=== PATIENT | male | born 1935 | race Caucasian/White ===

== ENCOUNTER 2016-03-19 13:26 | Inpatient (IN) | payer MEDICARE ==
[2016-03-19] MEDS ORDERED: MORPHINE SULFATE 4 MG/ML SYRINGE IV STA (13:57)
[2016-03-19] MEDS ORDERED: SODIUM CHLORIDE 0.9% 1,000 ML IV STA (13:57)
[2016-03-19] MEDS ORDERED: ASPIRIN 81 MG CHEW PO STA (13:57)
[2016-03-19] MEDS ORDERED: ONDANSETRON 4 MG/2 ML VIAL IVP STA (13:57)
[2016-03-19] MEDS ORDERED: NITROGLYCERIN OINT 1 INCH/GM PACKET TOPICAL STA (13:57)
[2016-03-19 14:21] LABS: Basophils % (A) 0 %; CH 32.5; CHCM 32.9; Eosinophils # (A) 0.2 k/uL (0-0.7); Eosinophils % (A) 4 %; HCT 41.2 % (39.0-53.0); HDW 3.22; HGB 13.5 gm/dL (13.0-17.5); Luc # (Auto) 0.12; Luc % (Auto) 2; Lymphocytes # (A) 0.6 k/uL (1.0-4.8); Lymphocytes % (A) 11 %; MCH 32.5 pg (25.0-35.0); MCHC 32.7 g/dL (31.0-37.0); MCV 99.4 fL (80.0-100.0); Macrocytosis Slight; Mean Platelet Volume 7.6; Monocytes # (A) 0.3 k/uL (0-1.0); Monocytes % (A) 5 %; Neutrophils # (A) 4.4 k/uL (1.3-7.7); Neutrophils % (A) 78 %; RBC 4.14 m/uL (4.30-5.90); RDW 15.2 % (11.5-15.5); WBC 5.6 k/uL (3.8-10.6); WBC (Perox) 5.62
[2016-03-19 14:26] LABS: ALT 31 U/L (21-72); AST 24 U/L (17-59); Alkaline Phosphatase 115 U/L (38-126); Anion Gap 16 mmol/L; Blood Urea Nitrogen 21 mg/dL (9-20); Calcium 9.9 mg/dL (8.4-10.2); Carbon Dioxide 32 mmol/L (22-30); Chloride 101 mmol/L (98-107); Glucose 80 mg/dL (74-99); Magnesium 2.1 mg/dL (1.6-2.3); Non-African American GFR(MDRD) >60 (>60 ml/min/1.73 sqM); Potassium 3.5 mmol/L (3.5-5.1); Sodium 149 mmol/L (137-145); Total Bilirubin 0.9 mg/dL (0.2-1.3); Total Protein 7.6 g/dL (6.3-8.2)
[2016-03-19 14:27] LABS: Partial Thromboplastin Time 23.4 sec (22.0-30.0); Prothrombin Time 10.2 sec (9.0-12.0)
[2016-03-19 14:48] LABS: Creatine Kinase MB 2.3 ng/mL (0.0-2.4)
[2016-03-19 14:51] LABS: Troponin I 0.259 ng/mL (0.000-0.034)
--- NOTE | 2016-03-19 15:43 | ED ---
Chest Pain HPI - General Chief Complaint: Chest Pain Stated Complaint: Chest Pain Time Seen by Provider: 03/19/16 13:51 Source: patient Mode of arrival: wheelchair Limitations: no limitations - History of Present Illness Initial Comments: Presented with chest pain on the right side of the chest and left side of the chest and the central chest it started about 11 AM today he was not quite exerting himself he came on when he was resting, it's better now he denies any shortness of breath he denies any pleuritic component to his chest pain. No fever no chills he is not coughing up any phlegm he took a nitro he didn't quite help he was on a Coumadin and then he was bleeding in his joints that's why he has not been on blood thinners, he denies any headaches or neck stiffness no sinus symptoms of TIA or CVA he has a history of coronary artery disease status post CABG back in 1997 he status post previous pacemaker in place and a defibrillator - Related Data Home Medications Medication Instructions Recorded Confirmed Allopurinol [Zyloprim] 300 mg PO QAM 11/23/13 03/19/16 Aspirin 81 mg PO DAILY 11/23/13 03/19/16 Atorvastatin [Lipitor] 40 mg PO HS 11/23/13 03/19/16 Carvedilol [Coreg] 3.125 mg PO BID 11/23/13 03/19/16 Dicyclomine [Bentyl] 10 mg PO TID PRN 11/23/13 03/19/16 Diphenoxylate HCl/Atropine 1 tab PO QID PRN 11/23/13 03/19/16 [Lomotil] Losartan [Cozaar] 25 mg PO DAILY 11/23/13 03/19/16 PARoxetine [Paxil] 20 mg PO HS 11/23/13 03/19/16 Terazosin [Hytrin] 2 mg PO HS 11/23/13 03/19/16 Diazepam [Valium] 5 mg PO BID PRN 07/23/14 03/19/16 Acetaminophen [Tylenol] 325 mg PO Q4H PRN 09/03/15 03/19/16 Torsemide [Torsemide] 20 mg PO BID 03/19/16 03/19/16 Allergies Allergy/AdvReac Type Severity Reaction Status Date / Time Penicillins Allergy Unknown Verified 09/03/15 13:14 Childhood Review of Systems ROS Statement: Those systems with pertinent positive or pertinent negative responses have been documented in the HPI. ROS Other: All systems not noted in ROS Statement are negative. EKG Findings - EKG Comments: EKG Findings:: EKG is ventricular paced rhythm biventricular pacemaker is in place, ventricular rate is 58 QRS duration is 154 QT/QTc is 488/479 Past Medical History Past Medical History: Atrial Fibrillation, Coronary Artery Disease (CAD), Heart Failure, GERD/Reflux, Hyperlipidemia, Hypertension, Musculoskeletal Disorder, Osteoarthritis (OA) Additional Past Medical History / Comment(s): CAD status post CABG with ischemic cardiomyopathy,gout, IBS History of Any Multi-Drug Resistant Organisms: MRSA Date of last positivie culture/infection: 2010 MDRO Source:: knee infection Past Surgical History: Coronary Bypass/CABG, Pacemaker Additional Past Surgical History / Comment(s): defibrillator/pacemaker. AAA surg , cataract surg Past Anesthesia/Blood Transfusion Reactions: No Reported Reaction Type of Cardiac Device: Permanent Pacemaker Device Placement Date:: 2012 Past Psychological History: No Psychological Hx Reported Smoking Status: Former smoker Past Alcohol Use History: Rare Past Drug Use History: None Reported - Past Family History Father Family Medical History: Cancer Additional Family Medical History / Comment(s): Brain and larynx Mother Family Medical History: Cancer Additional Family Medical History / Comment(s): Lung Brother(s) Family Medical History: No Reported History General Exam - General Exam Comments Initial Comments: General: The patient is awake and alert, in no distress, and does not appear acutely ill. Skin: Skin is warm and dry and no rashes or lesions are noted. Eye: Pupils are equal, round and reactive to light, extra-ocular movements are intact; there is normal conjunctiva bilaterally. Ears, nose, mouth and throat: There are moist mucous membranes and no oral lesions. Neck: The neck is supple, there is no tenderness Cardiovascular: There is a regular rate and rhythm. No murmur, rub or gallop is appreciated. Respiratory: To auscultation bilateral, mildly decreased breath sounds bilaterally Gastrointestinal: Soft, non-distended, non-tender abdomen without masses or organomegaly noted. There is no rebound or guarding present. Bowel sounds are unremarkable. Back: There is no tenderness to palpation in the midline. There is no obvious deformity. Musculoskeletal: Normal ROM, no tenderness, There is no pedal edema. There is no calf tenderness or swelling. No cords were appreciated. Neurological: CN II-XII intact, Cranial nerves III through XII are intact. There are no obvious motor or sensory deficits. Coordination appears grossly intact. Speech is normal. Psychiatric: Cooperative, appropriate mood & affect, normal judgment. Limitations: no limitations Course Vital Signs 03/19/16 13:31 Temperature 97.2 F L Pulse Rate 61 Respiratory 18 Rate Blood Pressure 204/93 O2 Sat by Pulse 100 Oximetry Critical Care Time Total Critical Care Time: 35 Critical Care Time: Similar chest pain since 11 AM, according to the are coronary artery ischemic disease protocol he was treated the ER I am going to give him a Lovenox 1 mg/kg subcu or heparinize him a regular heparin but there is a concern that he has a history of bleeding and joints that's when his Coumadin was started and stopped at 1.90 admitted with the morphine nitro blood thinner beyond post exchange manager as quotation under long-term cardiology consult and the service of Dr. Lucas Disposition Clinical Impression: Myocardial infarction Disposition: ADMITTED IP TO THIS HOSP Condition: Good
[2016-03-19] MEDS ORDERED: NITROGLYCERIN SL TABS 0.4 MG TAB SUBLINGUAL PRN (15:46)
[2016-03-19] MEDS ORDERED: ACETAMINOPHEN TAB 325 MG TAB PO PRN (15:52)
[2016-03-19] MEDS ORDERED: DICYCLOMINE 10 MG CAP PO PRN (15:52)
[2016-03-19] MEDS ORDERED: DIAZEPAM 5 MG TAB PO PRN (15:52)
[2016-03-19] MEDS ORDERED: DIPHENOX-ATROP 2.5-0.025 MG 1 EACH TAB PO PRN (15:52)
[2016-03-19] MEDS: CARVEDILOL 3.125 MG TAB PO SCH (18:07)
[2016-03-19 20:08] LABS: Creatine Kinase MB 3.3 ng/mL (0.0-2.4)
[2016-03-19 20:10] LABS: Troponin I 0.525 ng/mL (0.000-0.034)
[2016-03-19] MEDS: PARoxetine 20 MG TAB PO SCH (20:52)
[2016-03-19] MEDS: TERAZOSIN 2 MG CAP PO SCH (20:52)
[2016-03-19] MEDS: TORSEMIDE 20 MG TAB PO SCH (20:52)
[2016-03-19] MEDS ORDERED: ATORVASTATIN 40 MG TAB PO SCH ×2 (21:00)
[2016-03-20 02:19] LABS: Cholesterol 109 mg/dL (<200); HDL Cholesterol 32 mg/dL (40-60); Triglycerides 124 mg/dL (<150)
[2016-03-20 02:49] LABS: Creatine Kinase MB 4.9 ng/mL (0.0-2.4); Troponin I 1.18 ng/mL (0.000-0.034)
[2016-03-20] MEDS: CARVEDILOL 3.125 MG TAB PO SCH (07:01)
[2016-03-20] MEDS ORDERED: ASPIRIN 325 MG TAB PO STA (08:43)
[2016-03-20] MEDS ORDERED: ATORVASTATIN 80 MG TAB PO STA (08:43)
[2016-03-20] MEDS ORDERED: ALPRAZolam 0.5 MG TAB PO PRN (08:43)
[2016-03-20] MEDS ORDERED: NITROGLYCERIN SL TABS 0.4 MG TAB SUBLINGUAL PRN ×2 (08:43→15:53)
[2016-03-20] MEDS ORDERED: SODIUM CHLORIDE 0.9% 1,000 ML in EMPTY BAG 1 BAG IV ONE (08:43)
[2016-03-20] MEDS ORDERED: HEPARIN SODIUM,PORCINE 5,000 UNIT/ML 1 ML VIAL IV ONE (08:45)
[2016-03-20] MEDS ORDERED: HEPARIN SODIUM,PORCINE/D5W PMX 25,000 UNIT in DEXTROSE/WATER 1 500ML.BAG IV SCH (08:45)
[2016-03-20] MEDS ORDERED: HEPARIN SODIUM,PORCINE 5,000 UNIT/ML 1 ML VIAL IV PRN (08:45)
--- NOTE | 2016-03-20 08:45 | P.CRDCN ---
History of Present Illness Consult date: 03/20/16 Requesting physician: Shelia Lucas Consult reason: chest pain Chief complaint: Chest pain History of present illness: This is a pleasant 80-year-old gentleman with known history of coronary artery disease and prior bypass surgery 18 years ago, hypertension, hyperlipidemia, chronic persistent atrial fibrillation, prior biV AICD , prior AAA repair, prior carotid endarterectomy who follows regularly with Dr. Sheri Deng in the office. He presents to the hospital with symptoms of discomfort in his chest. He states that yesterday the symptoms started in the right shoulder area, radiated across the chest over to the left side, he denies any associated shortness of breath, no nausea, no diaphoresis. He took a sublingual nitroglycerin without relief of symptoms and came to the emergency room for further evaluation. Initial EKG on presentation here showed a ventricular paced rhythm with underlying atrial fibrillation, repeat EKG this morning shows ventricular paced rhythm with underlying atrial fibrillation.According to the patient, he had been on Coumadin a couple of times in the past, but because of bleeding was discontinued. Laboratory data was reviewed this morning, hemoglobin 13.5, WBC 5.6, potassium 3.5, BUN 21, creatinine 1.1. Troponins 0.25, 0.52, 1.18. BNP level 1490. Past Medical History Past Medical History: Atrial Fibrillation, Coronary Artery Disease (CAD), Heart Failure, GERD/Reflux, Hyperlipidemia, Hypertension, Musculoskeletal Disorder, Osteoarthritis (OA) Additional Past Medical History / Comment(s): CAD status post CABG with ischemic cardiomyopathy,gout, IBS History of Any Multi-Drug Resistant Organisms: MRSA Date of last positivie culture/infection: 2010 MDRO Source:: knee infection Past Surgical History: Coronary Bypass/CABG, Pacemaker Additional Past Surgical History / Comment(s): defibrillator/pacemaker. AAA surg , cataract surg Past Anesthesia/Blood Transfusion Reactions: No Reported Reaction Type of Cardiac Device: Permanent Pacemaker Device Placement Date:: 2012 Past Psychological History: No Psychological Hx Reported Smoking Status: Former smoker Past Alcohol Use History: Rare Past Drug Use History: None Reported - Past Family History Father Family Medical History: Cancer Additional Family Medical History / Comment(s): Brain and larynx Mother Family Medical History: Cancer Additional Family Medical History / Comment(s): Lung Brother(s) Family Medical History: No Reported History Medications and Allergies Home Medications Medication Instructions Recorded Confirmed Type Allopurinol [Zyloprim] 300 mg PO QAM 11/23/13 03/19/16 History Aspirin 81 mg PO DAILY 11/23/13 03/19/16 History Atorvastatin [Lipitor] 40 mg PO HS 11/23/13 03/19/16 History Carvedilol [Coreg] 3.125 mg PO BID 11/23/13 03/19/16 History Dicyclomine [Bentyl] 10 mg PO TID PRN 11/23/13 03/19/16 History Diphenoxylate HCl/Atropine 1 tab PO QID PRN 11/23/13 03/19/16 History [Lomotil] Losartan [Cozaar] 25 mg PO DAILY 11/23/13 03/19/16 History PARoxetine [Paxil] 20 mg PO HS 11/23/13 03/19/16 History Terazosin [Hytrin] 2 mg PO HS 11/23/13 03/19/16 History Diazepam [Valium] 5 mg PO BID PRN 07/23/14 03/19/16 History Acetaminophen [Tylenol] 325 mg PO Q4H PRN 09/03/15 03/19/16 History Torsemide [Torsemide] 20 mg PO BID 03/19/16 03/19/16 History Allergies Allergy/AdvReac Type Severity Reaction Status Date / Time Penicillins Allergy Unknown Verified 09/03/15 13:14 Childhood Physical Exam Vitals: Vital Signs Temp Pulse Pulse Resp BP BP Pulse Ox 03/20/16 04:00 97.1 F L 53 L 18 133/63 94 L 03/20/16 00:00 97.4 F L 58 L 18 138/62 98 03/19/16 20:00 96.6 F L 61 18 123/60 97 03/19/16 18:56 97 F L 62 17 141/65 96 03/19/16 17:44 98.0 F 74 18 179/77 98 Intake and Output 03/19/16 03/20/16 03/20/16 22:59 06:59 14:59 Output Total 300 400 Balance -300 -400 Output: Urine 300 400 Other: # Voids 1 Weight 77 kg PHYSICAL EXAMINATION: HEENT: Head is atraumatic, normocephalic. Pupils equal, round. Neck is supple. There is no elevated jugular venous pressure. HEART EXAMINATION: Heart S1 S2 irregular irregular systolic ejection murmur is heard. CHEST EXAMINATION: Lungs are clear to auscultation and precussion. No chest wall tenderness is noted on palpation or with deep breathing. ABDOMEN: Soft, nontender. Bowel sounds are heard. No organomegaly noted. EXTREMITIES: 2+ peripheral pulses with no evidence of peripheral edema and no calf tenderness noted. NEUROLOGIC patient is awake, alert and oriented -3. . Results 03/19/16 13:45 03/19/16 13:45 Cardiac Enzymes 03/19/16 03/20/16 Range/Units 19:14 01:45 CK-MB (CK-2) 3.3 H* 4.9 H* (0.0-2.4) ng/mL Troponin I 0.525 H* 1.180 H* (0.000-0.034) ng/mL Lipids 03/20/16 Range/Units 01:45 Triglycerides 124 (<150) mg/dL Cholesterol 109 (<200) mg/dL HDL Cholesterol 32 L (40-60) mg/dL Current Medications Generic Name Dose Route Start Last Admin Trade Name Freq PRN Reason Stop Dose Admin Acetaminophen 325 mg 03/19/16 15:52 Tylenol Tab PO Q4H PRN Mild Pain Allopurinol 300 mg 03/20/16 09:00 Zyloprim PO QAM [facility] Aspirin 81 mg 03/20/16 09:00 Aspirin PO DAILY [facility] Atorvastatin Calcium 40 mg 03/19/16 21:00 03/19/16 20:52 Lipitor PO 40 mg HS JAZ Administration Carvedilol 3.125 mg 03/19/16 17:30 03/20/16 07:01 Coreg PO 3.125 mg BID-W/MEALS JAZ Administration Diazepam 5 mg 03/19/16 15:52 Valium PO BID PRN Anxiety Dicyclomine HCl 10 mg 03/19/16 15:52 Bentyl PO TID PRN GI Upset Diphenoxylate HCl/Atropine 1 each 03/19/16 15:52 Lomotil PO QID PRN Diarrhea Sodium Chloride 1,000 mls @ 50 mls/hr 03/19/16 13:57 03/19/16 14:15 Saline 0.9% IV 03/20/16 09:56 50 mls/hr .Q20H STA Administration Losartan Potassium 25 mg 03/20/16 09:00 Cozaar PO DAILY JAZ Morphine Sulfate 2 mg 03/19/16 15:46 Morphine Sulfate (Inj) IVP Q5M PRN Chest Pain Nitroglycerin 0.4 mg 03/19/16 15:46 Nitrostat SUBLINGUAL Q5M PRN Chest Pain Paroxetine HCl 20 mg 03/19/16 21:00 03/19/16 20:52 Paxil PO 20 mg HS JAZ Administration Terazosin HCl 2 mg 03/19/16 21:00 03/19/16 20:52 Hytrin PO 2 mg HS JAZ Administration Torsemide 20 mg 03/19/16 21:00 03/19/16 20:52 Demadex PO 20 mg BID JAZ Administration Intake and Output 03/19/16 03/20/16 03/20/16 22:59 06:59 14:59 Output Total 300 400 Balance -300 -400 Output: Urine 300 400 Other: # Voids 1 Weight 77 kg EKG Interpretations (text) EKG shows a ventricular paced rhythm with underlying atrial fibrillation. Assessment and Plan Plan: Assessment and plan #1 chest discomfort, suggestive of acute coronary syndrome. EKG shows a ventricular paced rhythm with underlying atrial fibrillation. Troponins 0.25, 0.52, 1.1. #2 known history of coronary artery disease with prior bypass surgery 18 years ago #3 prior bi-V AICD implantation #4 chronic persistent atrial fibrillation, not on anticoagulation because of history of bleeding #5 hypertension #6 prior AAA with endograft #7 hyperlipidemia #8 PAD with prior carotid endarterectomy Plan Will obtain an echocardiogram with Doppler study. Continue baby aspirin, Lipitor, Coreg, losartan, we will start the patient on IV heparin. He has been advised to undergo cardiac catheterization, the risks and the benefits were explained to him in detail. This will be performed today by Dr. Sheri Deng. Further recommendations will be based on these findings and patient's clinical course. DNP note has been reviewed, I agree with a documented findings and plan of care. Patient was seen and examined.
[2016-03-20] MEDS ORDERED: ASPIRIN 81 MG CHEW PO SCH (09:00)
[2016-03-20] MEDS ORDERED: ASPIRIN 325 MG TAB PO SCH (09:00)
[2016-03-20] MEDS: ALLOPURINOL 300 MG TAB PO SCH (09:08)
[2016-03-20] MEDS: TORSEMIDE 20 MG TAB PO SCH ×2 (09:08→21:35)
[2016-03-20] MEDS: LOSARTAN 25 MG TAB PO SCH (09:09)
[2016-03-20 09:15] LABS: Basophils % (A) 1 %; CH 32.5; CHCM 32.1; Eosinophils # (A) 0.2 k/uL (0-0.7); Eosinophils % (A) 5 %; HGB 11.3 gm/dL (13.0-17.5); Hypochromasia Slight; Luc # (Auto) 0.06; Luc % (Auto) 1; Lymphocytes # (A) 0.8 k/uL (1.0-4.8); Lymphocytes % (A) 17 %; MCHC 31.3 g/dL (31.0-37.0); MCV 102.2 fL (80.0-100.0); Macrocytosis Slight; Mean Platelet Volume 9.1; Monocytes # (A) 0.3 k/uL (0-1.0); Monocytes % (A) 6 %; Neutrophils # (A) 3.2 k/uL (1.3-7.7); Neutrophils % (A) 70 %; RBC 3.53 m/uL (4.30-5.90); RDW 15.1 % (11.5-15.5); WBC 4.6 k/uL (3.8-10.6); WBC (Perox) 4.98
[2016-03-20 09:26] LABS: Partial Thromboplastin Time 23.9 sec (22.0-30.0); Prothrombin Time 10.6 sec (9.0-12.0)
--- NOTE | 2016-03-20 11:05 | ECHOF ---
Referral Reason:assess lvf MEASUREMENTS -------- HEIGHT: 177.8 cm WEIGHT: 76.7 kg BP: 133/63 RVIDd: 4.3 cm (< 3.3) IVSd: 1.3 cm (0.6 - 1.1) LVIDd: 3.5 cm (3.9 - 5.3) LVPWd: 1.2 cm (0.6 - 1.1) IVSs: 1.8 cm LVIDs: 2.7 cm LVPWs: 1.9 cm LA Diam: 3.9 cm (2.7 - 3.8) LAESV Index (A-L): 37.08 ml/m Ao Diam: 3.7 cm (2.0 - 3.7) AV Cusp: 1.8 cm (1.5 - 2.6) MV EXCURSION: 15.618 mm (> 18.000) MV EF SLOPE: 59 mm/s (70 - 150) EPSS: 1.0 cm MV E Jaret: 0.71 m/s MV DecT: 339 ms MV A Jaret: 0.75 m/s MV E/A Ratio: 0.95 RAP: 5.00 mmHg RVSP: 28.86 mmHg FINDINGS -------- Sinus rhythm. AICD This was a technically good study. The left ventricular size is normal. There is mild concentric left ventricular hypertrophy. Overall left ventricular systolic function is normal with, an EF between 55 - 60 %. The right ventricle is severely enlarged. LA is moderately dilated 34-39 ml/m2 The right atrium is normal in size. There is mild aortic valve sclerosis. Mild mitral annular calcification present. Mild tricuspid regurgitation present. Right ventricular systolic pressure is normal at < 35 mmHg. The pulmonic valve was not well visualized. The aortic root is dilated measuring 3.7cm. IVC Not well visulized. There is no pericardial effusion. CONCLUSIONS -------- 1. Sinus rhythm. 2. There is mild aortic valve sclerosis. 3. Mild mitral annular calcification present. 4. Mild tricuspid regurgitation present. 5. Right ventricular systolic pressure is normal at < 35 mmHg. 6. The pulmonic valve was not well visualized. 7. The aortic root is dilated measuring 3.7cm. 8. IVC Not well visulized. 9. There is no pericardial effusion. 10. AICD 11. This was a technically good study. 12. The left ventricular size is normal. 13. There is mild concentric left ventricular hypertrophy. 14. Overall left ventricular systolic function is normal with, an EF between 55 - 60 %. 15. The right ventricle is severely enlarged. 16. LA is moderately dilated 34-39 ml/m2 17. The right atrium is normal in size. EDUCATIONAL INTERPRETER: Lou Epperson RDCS
[2016-03-20] MEDS ORDERED: IV FLUID CONTINUATION 1,000 ML IV ONE (12:55)
[2016-03-20] MEDS ORDERED: diphenhydrAMINE 50 MG/ML 1 ML VIAL ONE (13:06)
[2016-03-20] MEDS ORDERED: MIDAZOLAM 2 MG/2 ML VIAL ONE (13:06)
[2016-03-20] MEDS ORDERED: LIDOCAINE 2% INJ 20 MG/ML (20 ML MDV) ONE ×2 (13:06→13:24)
[2016-03-20] MEDS ORDERED: diphenhydrAMINE 50 MG/ML 1 ML VIAL IVP ONE (13:08)
[2016-03-20] MEDS: MIDAZOLAM 2 MG/2 ML VIAL IV ONE ×2 (13:09→13:44)
[2016-03-20] MEDS: LIDOCAINE 2% INJ 20 MG/ML SQ ONE ×2 (13:13→13:29)
[2016-03-20] MEDS ORDERED: HYDROmorphone 2 MG/ML 1 ML SYRINGE ONE (13:18)
[2016-03-20] MEDS: HYDROmorphone 2 MG/ML 1 ML SYRINGE IV ONE ×3 (13:26→15:15)
[2016-03-20] MEDS: NITROGLYCERIN 1000MCG/10ML SYRINGE INTRACORON ONE ×3 (14:05→15:12)
[2016-03-20] MEDS ORDERED: METOPROLOL TARTRATE 5 MG/5 ML VIAL IVP ONE ×2 (14:05→14:08)
[2016-03-20] MEDS ORDERED: BIVALIRUDIN BOLUS 250 MG/50 ML IV ONE (14:32)
[2016-03-20] MEDS ORDERED: BIVALIRUDIN 250 MG in SODIUM CHLORIDE 0.9% 50 ML IV ONE (14:33)
[2016-03-20] MEDS ORDERED: NITROGLYCERIN SL TABS 0.4 MG TAB SUBLINGUAL ONE ×4 (14:34→15:10)
--- NOTE | 2016-03-20 14:54 | P.HPIM ---
History of Present Illness H&P Date: 03/20/16 Chief Complaint: Chest pain This is a 79-year-old male patient of with a previous medical history significant for coronary artery disease status post coronary artery bypass graft for 5 vessel is back in 1997 with ischemic cardiomyopathy status post AICD/permanent pacemaker placement, hypertension and hypertensive cardiovascular disease, hyperlipidemia, atrial fibrillation. Patient states he developed chest pain yesterday that went across his upper chest and to the bilateral shoulders. It did not radiate into his arms. He denies any nausea, vomiting, lightheadedness, dizziness, syncope. He describes it as a dull ache. He denies any abdominal pain. He denies any weight loss. Patient presented to [facility] emergency center with the above complaints. His initial blood pressure was elevated at 204/93. EKG showed a ventricular paced rhythm with underlying atrial fibrillation. His troponins were 0.25, 0.52 and 1.18. BNP 1490. BUN 21 and creatinine 1.1. Patient was admitted to the selective care unit and cardiology consult requested. Patient was started on heparin drip and continued on baby aspirin, Lipitor, Coreg, losartan. Echocardiogram has been ordered and patient has been scheduled for heart catheterization. Review of Systems All systems: negative Constitutional: Denies chills, Denies fever Eyes: denies blurred vision, denies pain Ears, nose, mouth and throat: Denies headache, Denies sore throat Cardiovascular: Reports chest pain, Denies shortness of breath Respiratory: Denies cough Gastrointestinal: Denies abdominal pain, Denies diarrhea, Denies nausea, Denies vomiting Musculoskeletal: Denies myalgias Integumentary: Denies pruritus, Denies rash Neurological: Denies numbness, Denies weakness Psychiatric: Denies anxiety, Denies depression Endocrine: Denies fatigue, Denies weight change Past Medical History Past Medical History: Atrial Fibrillation, Coronary Artery Disease (CAD), Heart Failure, GERD/Reflux, Hyperlipidemia, Hypertension, Musculoskeletal Disorder, Osteoarthritis (OA) Additional Past Medical History / Comment(s): CAD status post CABG with ischemic cardiomyopathy,gout, IBS History of Any Multi-Drug Resistant Organisms: MRSA Date of last positivie culture/infection: 2010 MDRO Source:: knee infection Past Surgical History: Coronary Bypass/CABG, Pacemaker Additional Past Surgical History / Comment(s): defibrillator/pacemaker. AAA surg , cataract surg Past Anesthesia/Blood Transfusion Reactions: No Reported Reaction Type of Cardiac Device: Permanent Pacemaker Device Placement Date:: 2012 Past Psychological History: No Psychological Hx Reported Smoking Status: Former smoker Past Alcohol Use History: Rare Past Drug Use History: None Reported - Past Family History Father Family Medical History: Cancer Additional Family Medical History / Comment(s): Brain and larynx Mother Family Medical History: Cancer Additional Family Medical History / Comment(s): Lung Brother(s) Family Medical History: No Reported History Medications and Allergies Home Medications Medication Instructions Recorded Confirmed Type Allopurinol [Zyloprim] 300 mg PO QAM 11/23/13 03/19/16 History Aspirin 81 mg PO DAILY 11/23/13 03/19/16 History Atorvastatin [Lipitor] 40 mg PO HS 11/23/13 03/19/16 History Carvedilol [Coreg] 3.125 mg PO BID 11/23/13 03/19/16 History Dicyclomine [Bentyl] 10 mg PO TID PRN 11/23/13 03/19/16 History Diphenoxylate HCl/Atropine 1 tab PO QID PRN 11/23/13 03/19/16 History [Lomotil] Losartan [Cozaar] 25 mg PO DAILY 11/23/13 03/19/16 History PARoxetine [Paxil] 20 mg PO HS 11/23/13 03/19/16 History Terazosin [Hytrin] 2 mg PO HS 11/23/13 03/19/16 History Diazepam [Valium] 5 mg PO BID PRN 07/23/14 03/19/16 History Acetaminophen [Tylenol] 325 mg PO Q4H PRN 09/03/15 03/19/16 History Torsemide [Torsemide] 20 mg PO BID 03/19/16 03/19/16 History Allergies Allergy/AdvReac Type Severity Reaction Status Date / Time Penicillins Allergy Unknown Verified 09/03/15 13:14 Childhood Physical Exam Vitals: Vital Signs Temp Pulse Pulse Resp BP BP Pulse Ox 03/20/16 09:22 98.1 F 64 16 153/70 93 L 03/20/16 04:00 97.1 F L 53 L 18 133/63 94 L 03/20/16 00:00 97.4 F L 58 L 18 138/62 98 03/19/16 20:00 96.6 F L 61 18 123/60 97 03/19/16 18:56 97 F L 62 17 141/65 96 03/19/16 17:44 98.0 F 74 18 179/77 98 Intake and Output 03/19/16 03/20/16 03/20/16 22:59 06:59 14:59 Output Total 300 400 Balance -300 -400 Output: Urine 300 400 Other: # Voids 1 Weight 77 kg General appearance: no acute distress - EENT Eyes: Reports anicteric sclerae, Reports EOMI, Reports PERRLA, Reports normal apperance, Denies photophobia, Denies ptosis ENT: Reports hard of hearing, Reports NA/AT, Reports normal oropharynx, Denies thrush, Denies tonsillar exudates, Denies tonsillar swelling Ears: bilateral: normal - Neck Neck: Reports normal ROM, Denies lymphadenopathy, Denies rigidity, Denies stridor, Denies thyromegaly Carotids: bilateral: upstroke delayed Thyroid: bilateral: normal size - Respiratory Respiratory: bilateral: diminished, negative: dullness, rales, rhonchi, wheezing , prolonged expiration, prolonged inspiration - Cardiovascular Rhythm: irregularly irregular Heart sounds: normal: S1, S2 Abnormal Heart Sounds: Reports systolic murmur, Denies rub, Denies click - Gastrointestinal General gastrointestinal: Reports normal bowel sounds, Reports soft, Denies splenomegaly, Denies tenderness, Denies umbilical hernia, Denies ventral hernia - Genitourinary Male genitourinary: enlarged prostate - Integumentary Integumentary: Reports normal, Reports normal turgor, Denies ulcer - Neurologic Neurologic: CNII-XII intact - Musculoskeletal Musculoskeletal: Reports gait normal, Reports strength equal bilaterally - Psychiatric Psychiatric: Reports A&O x's 3, Reports appropriate affect, Reports intact judgment & insight Results CBC & Chem 7: 03/20/16 09:03 03/19/16 13:45 Labs: Abnormal Lab Results - Last 24 Hours (Table) 03/19/16 03/20/16 03/20/16 Range/Units 19:14 01:45 01:45 RBC (4.30-5.90) m/uL Hgb (13.0-17.5) gm/dL Hct (39.0-53.0) % MCV (80.0-100.0) fL Plt Count (150-450) k/uL Lymphocytes # (1.0-4.8) k/uL CK-MB (CK-2) 3.3 H* 4.9 H* (0.0-2.4) ng/mL Troponin I 0.525 H* 1.180 H* (0.000-0.034) ng/mL HDL Cholesterol 32 L (40-60) mg/dL 03/20/16 Range/Units 09:03 RBC 3.53 L (4.30-5.90) m/uL Hgb 11.3 L (13.0-17.5) gm/dL Hct 36.0 L (39.0-53.0) % MCV 102.2 H (80.0-100.0) fL Plt Count 104 L (150-450) k/uL Lymphocytes # 0.8 L (1.0-4.8) k/uL CK-MB (CK-2) (0.0-2.4) ng/mL Troponin I (0.000-0.034) ng/mL HDL Cholesterol (40-60) mg/dL Thrombosis Risk Factor Assmnt - DVT/VTE Prophylaxis DVT/VTE Prophylaxis: Pharmacologic Prophylaxis ordered - Choose All That Apply Any of the Below Risk Factors Present?: Yes Other Risk Factors: Yes Each Risk Factor Represents 3 Points: Age 75 years or older Thrombosis Risk Factor Assessment Total Risk Factor Score: 3 Thrombosis Risk Factor Assessment Level: Moderate Risk Assessment and Plan Plan: 1. Chest pain with possible acute coronary syndrome with mild elevation in troponins. Patient has been started on heparin drip, continued on aspirin, Lipitor, Coreg and losartan. Cardiology consult appreciated. Patient is scheduled for heart catheterization 2. CAD status post CABG with ischemic cardiomyopathy. Continue carvedilol 3.125 mg orally twice every day, aspirin 81 mg orally once every day, Lipitor 40 mg orally once every, and losartan 25 mg orally once every day. 3. Hypertension and hypertensive cardiovascular disease. Continue losartan 25 mg orally once every day, carvedilol 3.125 mg orally twice every day. 4. Chronic atrial fibrillation status post permanent pacemaker placement. He shouldn't was taken off his Coumadin because of the risk of bleeding, the risk of CVAs quite elevated at this point in time. Continue 3.125 mg orally twice a day as well as aspirin 81 mg orally once every day. 5. Hyperlipidemia. Continue Lipitor 40 mg orally once every day. 6. Gout. Continue allopurinol 300 mg orally once every day. 7. Ischemic cardiomyopathy. Continue losartan 25 mg orally once every day, Coreg 3.125 mg orally twice every day, Demadex 20 mg orally twice every. 8. Irritable bowel syndrome with chronic diarrhea. We will continue Lomotil as needed. 9. Depressive disorder, recurrent. Continue Paxil 20 mg orally once every day. 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 His lead level was measured recently and was within normal range. 11. GERD with hiatal hernia. Stable. 12. Osteoarthritis. Stable. 13. DVT prophylaxis. On heparin drip. 14. GI prophylaxis. Continue PPI. Patient will be admitted to the hospital for a minimum of 2 night stay. Impression and plan of care have been directed as dictated by the signing physician. Vidya Cruz nurse practitioner acting as scribe for signing physician. Time with Patient: Greater than 30
--- NOTE | 2016-03-20 15:03 | XR ---
EXAMINATION TYPE: XR chest 2V DATE OF EXAM: 03/19/2016 2:33 PM COMPARISON: Prior chest x-ray 25 April 2015 HISTORY: Chest pain TECHNIQUE: Frontal and lateral views of the chest are obtained. FINDINGS: There is no focal air space opacity, pleural effusion, or pneumothorax seen. The cardiac silhouette size is within normal limits. Intracardiac defibrillator leads are stable, patient is po st median sternotomy. There are overlying cardiac leads. Aortic stent graft is present. Prominent lance g volume may be indicative of underlying COPD. The osseous structures are intact. IMPRESSION: No acute cardiopulmonary process.
[2016-03-20] MEDS ORDERED: IOHEXOL 350 MG/ML 100 ML BOTTLE INJ ONE (15:17)
[2016-03-20] MEDS ORDERED: NITROGLYCERIN-D5W PMX 50 MG in DEXTROSE/WATER 1 250ML.BAG IV ONE (15:18)
[2016-03-20] MEDS ORDERED: CLOPIDOGREL 75 MG TAB ONE (15:23)
[2016-03-20] MEDS ORDERED: CLOPIDOGREL 75 MG TAB PO ONE (15:33)
[2016-03-20] MEDS ORDERED: RX INFO: IV CONTRAST WAS GIVEN 1 EACH MISC MISCELLANE PRN (15:53)
[2016-03-20] MEDS ORDERED: MAG HYDROX/AL HYDROX/SIMETH 30 ML CUP PO PRN (15:53)
[2016-03-20] MEDS ORDERED: ZOLPIDEM 5 MG TAB PO PRN (15:53)
[2016-03-20] MEDS ORDERED: CARVEDILOL 3.125 MG TAB PO SCH (16:00)
[2016-03-20 16:18] LABS: Glucose,Whole Blood 76 mg/dL (75-99)
[2016-03-20] MEDS: SODIUM CHLORIDE 0.9% 1,000 ML IV SCH (16:40)
[2016-03-20] MEDS: NITROGLYCERIN-D5W PMX 50 MG in DEXTROSE/WATER 1 250ML.BAG IV SCH (17:50)
[2016-03-20] MEDS: CARVEDILOL 12.5 MG TAB PO SCH (17:50)
[2016-03-20] MEDS: ATORVASTATIN 40 MG TAB PO SCH (21:34)
[2016-03-20] MEDS: TERAZOSIN 2 MG CAP PO SCH (21:35)
[2016-03-20] MEDS: PARoxetine 20 MG TAB PO SCH (21:35)
[2016-03-21] MEDS: ceFAZolin 1,000 MG in DEXTROSE/WATER 1 50ML.BAG IVPB SCH ×3 (00:13→16:43)
[2016-03-21] MEDS: ALPRAZolam 0.25 MG TAB PO PRN ×2 (01:14→09:38)
[2016-03-21] MEDS: MORPHINE SULFATE 2 MG/ML SYRINGE IVP PRN ×2 (03:01→11:34)
[2016-03-21 05:12] LABS: Basophils % (A) 0 %; CH 32.3; CHCM 32.8; Eosinophils # (A) 0.2 k/uL (0-0.7); Eosinophils % (A) 3 %; HCT 28.6 % (39.0-53.0); HDW 3.25; Luc # (Auto) 0.12; Luc % (Auto) 3; Lymphocytes # (A) 0.5 k/uL (1.0-4.8); Lymphocytes % (A) 10 %; MCH 32.6 pg (25.0-35.0); MCHC 32.9 g/dL (31.0-37.0); MCV 99.2 fL (80.0-100.0); Macrocytosis Slight; Mean Platelet Volume 8.3; Monocytes # (A) 0.3 k/uL (0-1.0); Monocytes % (A) 6 %; Neutrophils # (A) 3.6 k/uL (1.3-7.7); Neutrophils % (A) 78 %; RBC 2.88 m/uL (4.30-5.90); RDW 15.2 % (11.5-15.5); WBC 4.6 k/uL (3.8-10.6); WBC (Perox) 4.87
[2016-03-21 05:13] LABS: HGB 9.4 gm/dL (13.0-17.5)
[2016-03-21 05:26] LABS: Anion Gap 9 mmol/L; Blood Urea Nitrogen 21 mg/dL (9-20); Calcium 8.5 mg/dL (8.4-10.2); Carbon Dioxide 29 mmol/L (22-30); Chloride 103 mmol/L (98-107); Glucose 109 mg/dL (74-99); Non-African American GFR(MDRD) >60 (>60 ml/min/1.73 sqM); Potassium 3.6 mmol/L (3.5-5.1); Sodium 141 mmol/L (137-145)
[2016-03-21] MEDS: SODIUM CHLORIDE 0.9% 1,000 ML IV SCH (05:42)
[2016-03-21] MEDS ORDERED: Potassium Replacement Protocol 1 EACH MISC MISCELLANE PRN (06:12)
[2016-03-21 06:47] LABS: INR 1.1 (<1.1); Partial Thromboplastin Time 27.8 sec (22.0-30.0); Prothrombin Time 10.7 sec (9.0-12.0)
[2016-03-21] MEDS: POTASSIUM CHLORIDE ER 20 MEQ TAB.ER PO SCH ×2 (07:05→08:41)
[2016-03-21] MEDS: hydrALAZINE HCL 20 MG/ML 1 ML VIAL IVP PRN ×2 (07:05→08:35)
[2016-03-21] MEDS: CARVEDILOL 12.5 MG TAB PO SCH ×2 (07:07→16:44)
[2016-03-21] MEDS: PANTOPRAZOLE 40 MG TABLET PO SCH (07:07)
--- NOTE | 2016-03-21 08:38 | CC ---
DATE OF SERVICE: 03/20/2016 PROCEDURE: Left heart catheterization, coronary angiography and selective injection of bypass grafts. PERFORMED BY: Dr. Latasha Deng. CLINICAL INFORMATION: Mr. Audie Cantrell is a 80-year-old gentleman with multiple comorbid conditions. He has history of CAD and nearly 18 to 20 years ago underwent aortocoronary bypass surgery and has ischemic cardiomyopathy with ejection fraction in the range of 25 to 30% with a Bi-V ICD. He also has abdominal aortic aneurysm status post stent grafting performed several years ago with grafts that extended to both iliacs as well as in the infrarenal aorta. He has hypertension, hypercholesterolemia, paroxysmal atrial fibrillation, multiple issues with bleeding and hematuria for which he is not anticoagulated. He has been doing fairly well. In fact, last summer, he was active enough that he played golf almost once a week or more. However, he came into the hospital with symptoms of chest pressure which he described as a pressure across from his right to left shoulder anteriorly and had a troponin elevation. After due discussion with the patient and family, he was advised cardiac catheterization. Dr. Patiño evaluated him. PROCEDURE NOTE: Prior to the procedure, I explained to the patient that this is going to be very difficult procedure because of vascular access issues. The patient was aware of it. He want me to go from the left femoral approach because he had pain in the right groin and I tried to go from left axis. I was able to access it but could not advance the wire because of heavy calcification. I then turned my attention to the right femoral approach. I was able to gain access using a stiff Amplatz wire and dilator, I placed a 6 Brazilian introducer uneventfully. Patient had a rather tortuous iliac system as well. Advancing on the iliac system was also a matter of concern and this had to be done very carefully. Using a standard left Tami catheters, I performed selective coronary angiography. Carmen catheter was used to perform selective injection of the right coronary artery which was totally occluded as a flush occlusion. Same catheter was used to perform selective injection of the vein graft to the diagonal. I also used the same catheter for RIVAS injection. I then switched to an AR2 catheter. With this I performed selective injection of the vein graft to the RCA/PDA and also to the obtuse marginal branch of circumflex. The fifth graft was not found and I could see a stump during one of the injections. I noted that the vein graft to the diagonal was patent and the vein graft to the RCA was patent as well as vein graft to the obtuse marginal was patent with moderate diffuse disease, but the RIVAS to LAD appeared to be totally occluded without any antegrade flow. There was some retrograde flow noted. However, whether this was a fresh occlusion or this was a chronic occlusion was rather unclear. The [place] LAD also had a 95% stenosis with haziness just before the origin of a major septal branch. LV pressures were obtained but LV gram was not performed. After some deliberation, I advised intervention of the [place] LAD, but I felt performing intervention of the RIVAS was a rather high risk with fairly significant risk of complications. Another compounding issues and this was in some angiograms in the aortic root I noted that there was a suggestion of a flap in the ascending aorta, where there was heavy calcification. This was noted on the initial injection of the left system and also prior to intervention, I noted the same appearance as well. However, under the circumstances, I felt the best approach would be to treat medically with a good blood pressure control and this was explained to the patient and family. Prior to any intervention, I went and spoke to the patient's at length after breaking the scrub, and I also spoke to the patient at length that this would be a high-risk intervention and the mortality rate is very given his multiple comorbid conditions. CARDIAC CATHETERIZATION FINDINGS: The left end-diastolic pressure was about 15 mmHg without any gradient across the aortic valve. CORONARY ANGIOGRAPHIC FINDINGS: LEFT MAIN: Left main coronary artery. There is a distal lesion of 60% noted prior bifurcation. Proximal portion body of left main is free of significant disease, with moderate calcification. With the left main injection, there was some amount of staining noted inferiorly whether this was a pre-existing flap or calcification was somewhat unclear. The left main coronary artery bifurcated into LAD and circumflex. LEFT ANTERIOR DESCENDING CORONARY ARTERY: This vessel gives off a major diagonal branch and then septal branch. Before the septal branch, which is a large septal branch there is a 95% stenosis with calcification and haziness and LAD right after the septal branch is totally occluded without any antegrade flow. LEFT POSTERIOR CIRCUMFLEX CORONARY ARTERY: This vessel has a 95% stenosis trifurcates into 3 smaller branches all of which are then occluded. The circumflex has been grafted. This vessel was previously stented seems to be flush occlusion and I could not get any antegrade injection, although the vessel was visualized on fluoroscopy. Saphenous vein graft to the diagonal branch of LAD : This graft is widely patent at origin, course, insertion site and opacified LAD is free of significant disease, but it does not really fill LAD, but the diagonal is opacified well. Saphenous vein graft to the obtuse marginal branch of circumflex this graft is widely patent at its origin and the body of the graft has about a 30% to 40% narrowing. Opacified obtuse marginal is small in caliber but no significant disease is noted. There is mild diffuse irregularities. Saphenous vein graft to the PDA branch of RCA : This graft is widely patent at its proximal portion, body and insertion site of the PDA. The opacified PDA is also free of significant disease with minor irregularities body. An additional vein graft was noted and a stump was noted, but this was not very clear. LEFT INTERNAL MAMMARY ARTERY GRAFT TO LAD: This graft is patent at its origin course. There is a difficult flow. Appears to be competent flow distally. There is some was retrograde filling of the LAD but antegrade appears to be a stump, with some competitive flow. Whether this is a fresh occlusion or whether it has been a chronic occlusion is unclear, but the entire left internal mammary artery is very tortuous and difficult to perform intervention. Left ventriculogram: This was not performed. FINAL IMPRESSION: 1. There is evidence of staining at the cusp of the left coronary artery. Whether this is a chronic calcification or whether this is related to any intrinsic dissection is unclear, but this was evident on diagnostic injections before intervention procedure. However, it appeared to be fairly stable. 2. This patient has a 60% distal left main stenosis and total occlusion of RCA. LAD has a 95% stenosis before a septal branch, and then the LAD is totally occluded. Circumflex has a 80% stenosis after which 3 smaller branches, which are all occluded. The vein graft to the obtuse marginal has moderate disease in the body up to 40 to 45%, but no critical stenosis and OM is free of significant disease. The vein graft to the diagonal branch is free of significant disease and opacified diagonal supplies a fair amount of myocardium. The vein graft to the PDA branch of RCA is free of significant disease. The additional vein graft was not seen but they was what seems to be a stump noted. 3. The left internal mammary artery to the LAD is totally occluded after the insertion site with some competitive flow, whether this is an acute or chronic is unclear. 4. There was also some staining in the left coronary cusp just below the left main coronary artery noted. RECOMMENDATIONS: I explained to the patient, broke scrub and went and talked to the . There were three compounding issues: One is a significant disease in the [place] LAD prior to the septal branch, which is a large septal branch and this is a 95% stenosis with haziness, which could be the culprit lesion. The RIVAS distally is occluded beyond the insertion site and this could be a chronic occlusion. There is some competitive flow, however it is not amenable to intervention. There is some amount of haziness and staining in the aorta just below the left main coronary artery in the cusp. Whether this represents any early dissection or calcification with staining is unclear. However, given the circumstances, this will be addressed with a blood pressure control and not with any aggressive intervention. This patient has had multiple operations and ischemic cardiomyopathy. I proceeded to perform intervention of the [place] LAD, which is a 95% stenosis in the midportion after diagonal branch before a large septal branch that seems to supply a good portion of the LAD territory.
[2016-03-21] MEDS: LOSARTAN 25 MG TAB PO SCH (08:42)
[2016-03-21] MEDS: ALLOPURINOL 300 MG TAB PO SCH (08:42)
[2016-03-21] MEDS: TORSEMIDE 20 MG TAB PO SCH ×2 (08:42→22:04)
[2016-03-21] MEDS ORDERED: Magnesium Replacement Protocol 1 EACH MISC MISCELLANE PRN (08:44)
[2016-03-21] MEDS: ASPIRIN 81 MG CHEW PO SCH (08:55)
--- NOTE | 2016-03-21 08:57 | PTCA ---
DATE OF SERVICE: 03/20/2016 PROCEDURE: PTCA and stenting of mid LAD. Performed by: Dr. Latasha Deng. Clinical information: Mr. Cantrell came in with a non-ST elevation OR was found to have a 95% mid LAD lesion before a very large septal branch. He also had total occlusion of RIVAS beyond the insertion site and without much antegrade flow. There was a question of dissection as well in the ascending portion of the aorta just below the left main coronary artery. I recommend intervention of the LAD, blood pressure control for the question of dissection, but no intervention for the left internal mammary artery graft. I proceeded to perform this in the same setting. PROCEDURE NOTE: Existing 6 [place] introducer were used to perform the procedure. Very carefully, I tried multiple guide catheters, but eventually settled for a Voda 3.5. With this I was able to get a good seating of the catheter. A BMW wire was used to cross the lesion. Predilatation was performed using a 2.5 caliber, 8 mm long NC trek balloon. I then advanced a 12 mm long, 2.5 caliber Xience stent and deployed this with excellent angiographic result. Patient had chest pain and no significant EKG changes. His chest pain was very significant. Excellent angiographic result without complication was achieved. Final angiograms revealed that the LAD lesion was excellent. The question of flap just below the left main seemed to persist with staining, but appeared to be quite stable. The sheath was sutured and patient was sent to the room in stable condition. He received 600 mg of Plavix and he also received Angiomax bolus and infusion as per protocol. The details of the procedure, findings and recommendations and also the prognosis and diagnosis and the fact that this is a high risk procedure with a high risk of mortality in-hospital was explained to the patient's daughter and and patient himself. He will be sent to the ICU on a nitroglycerin drip for blood pressure control, increased dose of beta juan plus other medications. The sheath was sutured and will be pulled tomorrow.
[2016-03-21] MEDS: MAGNESIUM SULFATE-D5W PMX 1 GM in DEXTROSE/WATER 1 100ML.BAG IVPB SCH ×2 (10:07→12:45)
--- NOTE | 2016-03-21 10:36 | P.PN ---
Subjective Principal diagnosis: Acute non-ST elevation NE This is a pleasant 80-year-old gentleman with a known CAD and prior CABG, ischemic cardiomyopathy, and status post AICD, as well as multiple comorbid conditions who was admitted to the hospital was acute non-ST elevation myocardial infarction and underwent a heart catheterization by Dr. CORRINA Deng and was found to have what it seems to be an occluded RIVAS to LAD. He underwent successful stenting of the proximal LAD with a good angiographic results. I'll follow-up with him today, he seems to be asymptomatic and denies having any chest pain or discomfort or difficulty breathing. The right groin seems to be soft and nontender and without any bruises. I will continue the current medical treatment with dual antiplatelet therapy and statin. I would increase the dose of Coreg to 25 mg by mouth twice a day for better blood pressure control. We will try to wean him from the nitro as well. Objective - Vital Signs Vital signs: Vital Signs Temp 98.4 F 03/21/16 08:38 Pulse 68 03/21/16 10:14 Resp 12 03/21/16 10:14 BP 129/45 03/21/16 10:14 Pulse Ox 98 03/21/16 10:14 Intake & Output 03/20/16 03/21/16 03/21/16 18:59 06:59 18:59 Intake Total 495 1224.350 165 Output Total 675 1050 Balance -180 174.350 165 Weight 81 kg Intake: IV 495 900 75 Sodium Chloride 0.9% 1, 150 900 75 000 ml @ 75 mls/hr IV . [id number] [facility] Rx#:[id number] Intake, IV Titration 124.350 90 Amount Nitroglycerin-D5w Pmx 50 74.350 90 mg In Dextrose/Water 1 250ml.bag @ 20 MCG/MIN 6 mls/hr IV .Q24H [facility] Rx#: [id number] ceFAZolin 1,000 mg In 50 Dextrose/Water 1 50ml.bag @ 100 mls/hr IVPB Q8HR [facility] Rx#:[id number] Oral 200 Output: Urine 675 1050 Other: Voiding Method Urinal # Voids 1 ABP, PAP, CO, CI - Last Documented Arterial Blood Pressure 111/43 - Constitutional General appearance: Present: no acute distress - Respiratory Respiratory: bilateral: diminished - Cardiovascular Rhythm: regular Heart sounds: normal: S1, S2 - Labs CBC & Chem 7: 03/21/16 04:53 03/21/16 04:53 Labs: Abnormal Lab Results - Last 24 Hours (Table) 03/20/16 03/21/16 03/21/16 Range/Units 17:00 04:53 04:53 RBC 2.88 L (4.30-5.90) m/uL Hgb 9.4 L D (13.0-17.5) gm/dL Hct 28.6 L (39.0-53.0) % Plt Count 102 L (150-450) k/uL Lymphocytes # 0.5 L (1.0-4.8) k/uL BUN 21 H (9-20) mg/dL Glucose 109 H (74-99) mg/dL Troponin I 1.250 H* (0.000-0.034) ng/mL 03/21/16 Range/Units 04:53 RBC (4.30-5.90) m/uL Hgb (13.0-17.5) gm/dL Hct (39.0-53.0) % Plt Count (150-450) k/uL Lymphocytes # (1.0-4.8) k/uL BUN (9-20) mg/dL Glucose (74-99) mg/dL Troponin I 2.620 H* (0.000-0.034) ng/mL Assessment and Plan Plan: Assessment #1 acute non-ST elevation myocardial infarction #2 status post a stenting of the proximal LAD #3 multiple comorbid conditions #4 uncontrolled hypertension Plan #1 right wean the patient from the nitro IV #2 increase the dose of Coreg #3 continue dual antiplatelet therapy #4 follow-up with the patient
--- NOTE | 2016-03-21 11:08 | P.PN ---
Subjective This is a 79-year-old male patient of with a previous medical history significant for coronary artery disease status post coronary artery bypass graft for 5 vessel is back in 1997 with ischemic cardiomyopathy status post AICD/permanent pacemaker placement, hypertension and hypertensive cardiovascular disease, hyperlipidemia, atrial fibrillation. Patient states he developed chest pain yesterday that went across his upper chest and to the bilateral shoulders. It did not radiate into his arms. He denies any nausea, vomiting, lightheadedness, dizziness, syncope. He describes it as a dull ache. He denies any abdominal pain. He denies any weight loss. Patient presented to [facility] emergency center with the above complaints. His initial blood pressure was elevated at 204/93. EKG showed a ventricular paced rhythm with underlying atrial fibrillation. His troponins were 0.25, 0.52 and 1.18. BNP 1490. BUN 21 and creatinine 1.1. Patient was admitted to the selective care unit and cardiology consult requested. Patient was started on heparin drip and continued on baby aspirin, Lipitor, Coreg, losartan. Echocardiogram has been ordered and patient has been scheduled for heart catheterization. 03/21: Patient underwent heart catheterization with Dr. CORRINA Deng and was found to have occluded RIVAS to LAD and underwent successful stenting of the proximal LAD. Patient was then admitted into the intensive care unit following procedure. He has had a drop in his hemoglobin which is being monitored. He has also been hypertension for which Coreg has been increased and he has received nitroglycerin drip and IV hydralazine. Objective - Vital Signs Vital signs: Vital Signs Temp 98.2 F 03/21/16 04:00 Pulse 67 03/21/16 07:00 Resp 6 L 03/21/16 07:00 BP 157/65 03/21/16 04:00 Pulse Ox 96 03/21/16 07:00 Intake & Output 03/20/16 03/21/16 03/21/16 18:59 06:59 18:59 Intake Total 495 1224.350 75 Output Total 675 1050 Balance -180 174.350 75 Weight 81 kg Intake: IV 495 900 75 Sodium Chloride 0.9% 1, 150 900 75 000 ml @ 75 mls/hr IV . [id number] [facility] Rx#:[id number] Intake, IV Titration 124.350 Amount Nitroglycerin-D5w Pmx 50 74.350 mg In Dextrose/Water 1 250ml.bag @ 20 MCG/MIN 6 mls/hr IV .Q24H [facility] Rx#: [id number] ceFAZolin 1,000 mg In 50 Dextrose/Water 1 50ml.bag @ 100 mls/hr IVPB Q8HR [facility] Rx#:[id number] Oral 200 Output: Urine 675 1050 Other: Voiding Method Urinal # Voids 1 ABP, PAP, CO, CI - Last Documented Arterial Blood Pressure 152/58 - Exam General appearance: no acute distress - EENT Eyes: Reports anicteric sclerae, Reports EOMI, Reports PERRLA, Reports normal apperance, Denies photophobia, Denies ptosis ENT: Reports hard of hearing, Reports NA/AT, Reports normal oropharynx, Denies thrush, Denies tonsillar exudates, Denies tonsillar swelling Ears: bilateral: normal - Neck Neck: Reports normal ROM, Denies lymphadenopathy, Denies rigidity, Denies stridor, Denies thyromegaly Carotids: bilateral: upstroke delayed Thyroid: bilateral: normal size - Respiratory Respiratory: bilateral: diminished, negative: dullness, rales, rhonchi, wheezing , prolonged expiration, prolonged inspiration - Cardiovascular Rhythm: irregularly irregular Heart sounds: normal: S1, S2 Abnormal Heart Sounds: Reports systolic murmur, Denies rub, Denies click - Gastrointestinal General gastrointestinal: Reports normal bowel sounds, Reports soft, Denies splenomegaly, Denies tenderness, Denies umbilical hernia, Denies ventral hernia - Genitourinary Male genitourinary: enlarged prostate - Integumentary Integumentary: Reports normal, Reports normal turgor, Denies ulcer - Neurologic Neurologic: CNII-XII intact - Musculoskeletal Musculoskeletal: Reports gait normal, Reports strength equal bilaterally - Psychiatric Psychiatric: Reports A&O x's 3, Reports appropriate affect, Reports intact judgment & insight - Labs CBC & Chem 7: 03/21/16 04:53 03/21/16 04:53 Labs: Abnormal Lab Results - Last 24 Hours (Table) 03/20/16 03/20/16 03/21/16 Range/Units 09:03 17:00 04:53 RBC 3.53 L 2.88 L (4.30-5.90) m/uL Hgb 11.3 L 9.4 L D (13.0-17.5) gm/dL Hct 36.0 L 28.6 L (39.0-53.0) % MCV 102.2 H (80.0-100.0) fL Plt Count 104 L 102 L (150-450) k/uL Lymphocytes # 0.8 L 0.5 L (1.0-4.8) k/uL BUN (9-20) mg/dL Glucose (74-99) mg/dL Troponin I 1.250 H* (0.000-0.034) ng/mL 03/21/16 03/21/16 Range/Units 04:53 04:53 RBC (4.30-5.90) m/uL Hgb (13.0-17.5) gm/dL Hct (39.0-53.0) % MCV (80.0-100.0) fL Plt Count (150-450) k/uL Lymphocytes # (1.0-4.8) k/uL BUN 21 H (9-20) mg/dL Glucose 109 H (74-99) mg/dL Troponin I 2.620 H* (0.000-0.034) ng/mL Assessment and Plan Plan: 1. Acute non-ST elevated myocardial infarction status post stenting of the proximal LAD. Coreg dose increased, continue aspirin, Lipitor, and losartan. Cardiology consult appreciated. 2. CAD status post CABG with ischemic cardiomyopathy. Carvedilol increased to 25 mg twice every day, aspirin 81 mg orally once every day, Lipitor 40 mg orally once every, and losartan 25 mg orally once every day. 3. Hypertension and hypertensive cardiovascular disease. Continue losartan 25 mg orally once every day, carvedilol 25 mg orally twice every day. 4. Chronic atrial fibrillation status post permanent pacemaker placement. He shouldn't was taken off his Coumadin because of the risk of bleeding, the risk of CVAs quite elevated at this point in time. Continue Coreg 25 mg orally twice a day as well as aspirin 81 mg orally once every day. 5. Hyperlipidemia. Continue Lipitor 40 mg orally once every day. 6. Gout. Continue allopurinol 300 mg orally once every day. 7. Ischemic cardiomyopathy. Continue losartan 25 mg orally once every day, Coreg 5 mg orally twice every day, Demadex 20 mg orally twice every. 8. Irritable bowel syndrome with chronic diarrhea. We will continue Lomotil as needed. 9. Depressive disorder, recurrent. Continue Paxil 20 mg orally once every day. 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 His lead level was measured recently and was within normal range. 11. GERD with hiatal hernia. Stable. 12. Osteoarthritis. Stable. 13. DVT prophylaxis. On heparin drip. 14. GI prophylaxis. Continue PPI. Impression and plan of care have been directed as dictated by the signing physician. Vidya Cruz nurse practitioner acting as scribe for signing physician. Time with Patient: Greater than 30
--- NOTE | 2016-03-21 12:00 | P.CNPUL ---
History of Present Illness Consult date: 03/21/16 Requesting physician: Shelia Lucas Reason for consult: other (Critical care management) Chief complaint: Chest pain History of present illness: This is a very pleasant 80-year-old gentleman who follows with Dr. Ordonez is his primary care physician. He has a history of coronary artery disease status post coronary artery bypass grafting in 1997, hyperlipidemia, hypertension, atrial fibrillation not on anticoagulants secondary to history of bleeding into his joints, cardiomyopathy status post biventricular AICD, irritable bowel syndrome, gout and the previous MRSA infection of the knee. He is a former smoker but denies any significant pulmonary disease. He presented here 2016 with complaints of chest pain. He was found to have non-ST segment elevation myocardial infarction and had undergone cardiac catheterization on 08/2016 and found to have occluded RIVAS to the LAD and subsequent stenting to the LAD. He has been on dual antiplatelet therapy. He is seen today in the ICU and consultation. The sheath to the right groin was removed this morning. He is maintaining good O2 saturations in the 90s on 3 L/m per nasal cannula. His chest x-ray shows no acute pulmonary process. He has remained hypertensive and is receiving IV hydralazine, Coreg and is requiring nitroglycerin currently at 30 mcg/m. He is also noted to have a drop in hemoglobin initially 13.5 currently at 9.4. No clear evidence of active bleeding. Presently he is awake and alert in no acute distress. He denies any shortness of breath. No chest pain, no palpitations. No lightheadedness or dizziness. Review of Systems 14 point review of system was conducted. All negative other than as mentioned in the HPI. Past Medical History Past Medical History: Atrial Fibrillation, Coronary Artery Disease (CAD), Heart Failure, GERD/Reflux, Hyperlipidemia, Hypertension, Musculoskeletal Disorder, Osteoarthritis (OA) Additional Past Medical History / Comment(s): CAD status post CABG with ischemic cardiomyopathy,gout, IBS History of Any Multi-Drug Resistant Organisms: MRSA Date of last positivie culture/infection: 2010 MDRO Source:: knee infection Past Surgical History: Coronary Bypass/CABG, Pacemaker Additional Past Surgical History / Comment(s): defibrillator/pacemaker. AAA surg , cataract surg Past Anesthesia/Blood Transfusion Reactions: No Reported Reaction Type of Cardiac Device: Permanent Pacemaker Device Placement Date:: 2012 Past Psychological History: No Psychological Hx Reported Smoking Status: Former smoker Past Alcohol Use History: Rare Past Drug Use History: None Reported - Past Family History Father Family Medical History: Cancer Additional Family Medical History / Comment(s): Brain and larynx Mother Family Medical History: Cancer Additional Family Medical History / Comment(s): Lung Brother(s) Family Medical History: No Reported History Medications and Allergies Home Medications Medication Instructions Recorded Confirmed Type Allopurinol [Zyloprim] 300 mg PO QAM 11/23/13 03/19/16 History Aspirin 81 mg PO DAILY 11/23/13 03/19/16 History Atorvastatin [Lipitor] 40 mg PO HS 11/23/13 03/19/16 History Carvedilol [Coreg] 3.125 mg PO BID 11/23/13 03/19/16 History Dicyclomine [Bentyl] 10 mg PO TID PRN 11/23/13 03/19/16 History Diphenoxylate HCl/Atropine 1 tab PO QID PRN 11/23/13 03/19/16 History [Lomotil] Losartan [Cozaar] 25 mg PO DAILY 11/23/13 03/19/16 History PARoxetine [Paxil] 20 mg PO HS 11/23/13 03/19/16 History Terazosin [Hytrin] 2 mg PO HS 11/23/13 03/19/16 History Diazepam [Valium] 5 mg PO BID PRN 07/23/14 03/19/16 History Acetaminophen [Tylenol] 325 mg PO Q4H PRN 09/03/15 03/19/16 History Torsemide [Torsemide] 20 mg PO BID 03/19/16 03/19/16 History Allergies Allergy/AdvReac Type Severity Reaction Status Date / Time Penicillins Allergy Unknown Verified 09/03/15 13:14 Childhood Physical Exam Vitals: Vital Signs Temp Pulse Pulse Resp BP BP Pulse Ox 03/21/16 10:14 68 12 129/45 98 03/21/16 10:00 66 13 114/60 97 03/21/16 09:44 64 15 123/48 98 03/21/16 09:30 60 20 135/59 99 03/21/16 09:26 62 18 137/57 96 03/21/16 09:24 67 15 126/55 96 03/21/16 09:20 65 14 117/50 92 L 03/21/16 09:08 65 19 120/51 97 03/21/16 08:38 98.4 F 61 12 138/50 97 03/21/16 07:00 67 6 L 96 03/21/16 06:30 70 10 L 97 03/21/16 06:00 63 10 L 98 03/21/16 05:30 61 12 98 03/21/16 05:00 69 19 97 03/21/16 04:30 69 10 L 95 03/21/16 04:00 98.2 F 72 16 157/65 93 L 03/21/16 03:40 67 19 157/65 93 L 03/21/16 03:20 65 14 139/61 95 03/21/16 03:00 56 L 13 96 03/21/16 02:40 67 16 97 03/21/16 02:00 75 18 94 L 03/21/16 01:30 65 20 99 03/21/16 01:00 66 19 95 03/21/16 00:30 62 21 94 L 03/21/16 00:00 98.4 F 62 14 93 L 03/20/16 23:30 54 L 15 95 03/20/16 23:00 55 L 16 94 L 03/20/16 22:30 61 18 96 03/20/16 22:00 65 14 95 03/20/16 21:30 55 L 13 97 03/20/16 21:00 76 25 H 94 L 03/20/16 20:30 68 25 H 94 L 03/20/16 20:00 97.3 F L 59 L 22 93 L 03/20/16 19:30 56 L 18 95 03/20/16 19:00 59 L 12 94 L 03/20/16 18:30 58 L 17 136/70 93 L 03/20/16 18:00 54 L 15 136/70 95 03/20/16 17:45 54 L 14 136/70 94 L 03/20/16 17:30 59 L 26 H 136/70 93 L 03/20/16 17:15 56 L 11 L 136/70 93 L 03/20/16 17:00 64 25 H 136/70 93 L 03/20/16 16:45 97 24 97 03/20/16 16:30 97.9 F 61 18 97 03/20/16 16:13 25 H 03/20/16 12:02 98.2 F 60 16 132/65 96 03/20/16 11:54 97.7 F 60 16 132/65 96 Intake and Output 03/20/16 03/21/16 03/21/16 22:59 06:59 14:59 Intake Total 676.4 697.950 165 Output Total 725 700 Balance -48.6 -2.050 165 Intake: IV 450 600 75 Sodium Chloride 0.9% 1, 450 600 75 000 ml @ 75 mls/hr IV . [id number] [facility] Rx#:[id number] Intake, IV Titration 26.4 97.950 90 Amount Nitroglycerin-D5w Pmx 50 26.4 47.950 90 mg In Dextrose/Water 1 250ml.bag @ 20 MCG/MIN 6 mls/hr IV .Q24H [facility] Rx#: [id number] ceFAZolin 1,000 mg In 50 Dextrose/Water 1 50ml.bag @ 100 mls/hr IVPB Q8HR [facility] Rx#:[id number] Oral 200 Output: Urine 725 700 Other: Voiding Method Urinal Urinal Urinal # Voids 1 1 Weight 81 kg ABP, PAP, CO, CI - Last 8 Hours Arterial Blood Pressure 111/43 Arterial Blood Pressure 130/51 Arterial Blood Pressure 152/58 Arterial Blood Pressure 135/56 Arterial Blood Pressure 143/56 Arterial Blood Pressure 137/55 Arterial Blood Pressure 132/57 Arterial Blood Pressure 126/54 Arterial Blood Pressure 143/57 GENERAL EXAM: Alert, comfortable in no apparent distress. HEAD: Normocephalic. EYES: Normal reaction of pupils, equal size. NOSE: Clear with pink turbinates. THROAT: No erythema or exudates. NECK: No masses, no JVD. CHEST: No chest wall deformity. LUNGS: Equal air entry with no crackles, wheeze, rhonchi or dullness. CVS: S1 and S2 normal with systolic murmur, irregular rhythm. ABDOMEN: No hepatosplenomegaly, normal bowel sounds, no guarding or rigidity. SPINE: No scoliosis or deformity SKIN: No rashes CENTRAL NERVOUS SYSTEM: No focal deficits, tone is normal in all 4 extremities. Results - Laboratory Findings CBC and BMP: 03/21/16 04:53 03/21/16 04:53 PT/INR, D-dimer PT 10.7 sec (9.0-12.0) 03/21/16 04:53 INR 1.1 (<1.1) 03/21/16 04:53 Abnormal lab findings: Abnormal Labs 03/19/16 03/20/16 03/20/16 19:14 01:45 01:45 RBC Hgb Hct MCV Plt Count Lymphocytes # BUN Glucose CK-MB (CK-2) 3.3 H* 4.9 H* Troponin I 0.525 H* 1.180 H* HDL Cholesterol 32 L 03/20/16 03/20/16 03/21/16 09:03 17:00 04:53 RBC 3.53 L 2.88 L Hgb 11.3 L 9.4 L D Hct 36.0 L 28.6 L MCV 102.2 H Plt Count 104 L 102 L Lymphocytes # 0.8 L 0.5 L BUN Glucose CK-MB (CK-2) Troponin I 1.250 H* HDL Cholesterol 03/21/16 03/21/16 04:53 04:53 RBC Hgb Hct MCV Plt Count Lymphocytes # BUN 21 H Glucose 109 H CK-MB (CK-2) Troponin I 2.620 H* HDL Cholesterol - Diagnostic Findings Chest x-ray: image reviewed Assessment and Plan Plan: Impression: #1 Non-ST segment elevation myocardial infarction secondary to occluded RIVAS to the LAD. Status post stenting to the LAD. #2 Anemia current hemoglobin 9.4. No clear evidence of bleeding source. #3 Chronic atrial fibrillation, not anticoagulated secondary to history of previous bleeding into the joints. #4 History of coronary artery disease, status post coronary artery bypass grafting in 1997. #5 Ischemic cardiomyopathy status post biventricular AICD. Improved left ventricular systolic function current ejection fraction 55-60%. #6 Remote history of chronic nicotine addiction. #7 Hypertension. #8 Hyperlipidemia. #9 Carotid artery stenosis status post carotid endarterectomy. #10 History of abdominal aortic aneurysm, status post endograft placement. Plan: The patient was seen and evaluated by Dr. Ratliff chest x-ray and labs were reviewed. There is some concern regarding the drop in hemoglobin. A computed tomography scan of the chest and abdomen have been ordered to rule out any dissection. Continue to monitor him closely here in the intensive care unit. We'll make further recommendations based on his clinical status.
--- NOTE | 2016-03-21 12:44 | CT ---
EXAMINATION TYPE: CT angio thoracic/abd aorta DATE OF EXAM: 03/21/2016 12:22 PM COMPARISON: CT abdomen pelvis October 29, 2015. CT chest and abdomen October 18, 2012. HISTORY: Patient just had heart cath yesterday and his Hgb has dropped from 13.5 to 9.4, rule out ret roperitoneal bleed CT DLP: 1293.9 mGycm. Automated Exposure Control for Dose Reduction was Utilized. CONTRAST: CTA scan of the thoracic and abdominal aorta is performed without and with IV Contrast, patient injec gisele with 100 mL of Omnipaque 350. Three-D reconstructed images are created on independent workstation and reviewed. FINDINGS: VASCULAR: There is moderate mixed plaque in the aortic arch. Moderate to severe mixed plaque in the d escending thoracic aorta is present. There is patent three-vessel origin from aortic arch. Pulmonary arteries are felt within normal limits. There is redemonstration of large infrarenal abdominal aortic aneurysm with metallic aortobiiliac ar nt graft redemonstrated. [place] aneurysm measures 6.9 x 6.6 cm on axial image 61 felt fairly stable i n size from prior exam. Postcontrast images show enhancement of the stent graft into bilateral common iliac artery branches with some filling of internal and external Iliac arteries bilaterally. There is curvilinear extra graft enhancement along proximal posterior por tion in the aneurysm sac redemonstrated and appears more prominent versus prior exam. There is a albarado nt celiac access, SMA, bilateral single renal arteries redemonstrated. LUNGS: Mild underlying emphysematous change is felt present. There are new tiny bilateral pleural eff usions. There is associated compressive atelectasis in both lung bases. Evaluation slightly suboptima l as there is some respiratory motion artifact degradation. No pneumothorax is seen bilaterally. No s uspicious opacification or consolidation is present. MEDIASTINUM: There are no greater than 1 cm hilar or mediastinal lymph nodes. No pericardial effusi on is seen. Heart size is upper limits of normal. [place] coronary artery calcification is noted. Pos t CABG changes with mediastinal clips and sternal wires is present. There is multilevel pacemaker/AIC D. OTHER: Bilateral gynecomastia is redemonstrated. LIVER/GB: Dependent density in gallbladder likely reflects vicarious excretion of contrast given juan carlos ent history. Surgical clips near level of gallbladder fossa on image 50 series 3 is noted PANCREAS: No significant abnormality is seen. SPLEEN: No significant abnormality is seen. ADRENALS: No significant abnormality is seen. KIDNEYS: Areas of cortical infarct left kidney are redemonstrated. A few simple appearing cysts are a gain seen. BOWEL: No significant abnormality is seen. LYMPH NODES: No greater than 1cm abdominal lymph nodes are appreciated. OSSEOUS STRUCTURES: Multilevel spurring throughout the thoracolumbar spine is present. OTHER: No significant additional abnormality is seen. IMPRESSION: 1. Persistent large infrarenal abdominal aortic aneurysm with aortobiiliac stent graft that shows kee dence of type IA endoleak which appears more prominent on current study but overall paimiut aneurysm i s not significantly changed. Otherwise no suspicious retroperitoneal or periaortic fluid collection i s identified to account for patient's symptoms.
[2016-03-21] MEDS: NITROGLYCERIN-D5W PMX 50 MG in DEXTROSE/WATER 1 250ML.BAG IV SCH (16:41)
[2016-03-21] MEDS: CLOPIDOGREL 75 MG TAB PO SCH (16:42)
[2016-03-21] MEDS: ATORVASTATIN 40 MG TAB PO SCH (22:04)
[2016-03-21] MEDS: PARoxetine 20 MG TAB PO SCH (22:04)
[2016-03-21] MEDS: TERAZOSIN 2 MG CAP PO SCH (22:04)
[2016-03-22] MEDS: ceFAZolin 1,000 MG in DEXTROSE/WATER 1 50ML.BAG IVPB SCH (01:00)
[2016-03-22] MEDS: hydrALAZINE HCL 20 MG/ML 1 ML VIAL IVP PRN ×2 (02:07→17:49)
[2016-03-22 07:40] LABS: Basophils % (A) 0 %; CH 33.1; CHCM 33.4; Eosinophils # (A) 0.2 k/uL (0-0.7); Eosinophils % (A) 4 %; HCT 28.9 % (39.0-53.0); HDW 3.19; HGB 9.3 gm/dL (13.0-17.5); Luc % (Auto) 2; Lymphocytes # (A) 0.4 k/uL (1.0-4.8); Lymphocytes % (A) 9 %; MCHC 32.1 g/dL (31.0-37.0); MCV 99.9 fL (80.0-100.0); Macrocytosis Slight; Mean Platelet Volume 8.6; Monocytes # (A) 0.3 k/uL (0-1.0); Monocytes % (A) 7 %; Neutrophils # (A) 3.7 k/uL (1.3-7.7); Neutrophils % (A) 78 %; RBC 2.89 m/uL (4.30-5.90); RDW 15.4 % (11.5-15.5); WBC 4.7 k/uL (3.8-10.6); WBC (Perox) 4.77
[2016-03-22 07:44] LABS: ALT 29 U/L (21-72); AST 20 U/L (17-59); Alkaline Phosphatase 77 U/L (38-126); Anion Gap 9 mmol/L; Blood Urea Nitrogen 21 mg/dL (9-20); Calcium 8.5 mg/dL (8.4-10.2); Carbon Dioxide 27 mmol/L (22-30); Chloride 104 mmol/L (98-107); Glucose 110 mg/dL (74-99); Magnesium 2.3 mg/dL (1.6-2.3); Non-African American GFR(MDRD) 53 (>60 ml/min/1.73 sqM); Potassium 3.7 mmol/L (3.5-5.1); Sodium 140 mmol/L (137-145); Total Bilirubin 0.4 mg/dL (0.2-1.3); Total Protein 4.6 g/dL (6.3-8.2)
[2016-03-22] MEDS: CARVEDILOL 12.5 MG TAB PO SCH ×2 (09:14→17:53)
[2016-03-22] MEDS: LOSARTAN 25 MG TAB PO SCH (09:14)
[2016-03-22] MEDS: ALLOPURINOL 300 MG TAB PO SCH (09:14)
[2016-03-22] MEDS: ASPIRIN 81 MG CHEW PO SCH (09:14)
[2016-03-22] MEDS: PANTOPRAZOLE 40 MG TABLET PO SCH (09:15)
[2016-03-22] MEDS: TORSEMIDE 20 MG TAB PO SCH ×2 (09:15→20:26)
[2016-03-22] MEDS: CLOPIDOGREL 75 MG TAB PO SCH (09:15)
--- NOTE | 2016-03-22 09:39 | P.PN ---
Subjective This is a 79-year-old male patient of with a previous medical history significant for coronary artery disease status post coronary artery bypass graft for 5 vessel is back in 1997 with ischemic cardiomyopathy status post AICD/permanent pacemaker placement, hypertension and hypertensive cardiovascular disease, hyperlipidemia, atrial fibrillation. Patient states he developed chest pain yesterday that went across his upper chest and to the bilateral shoulders. It did not radiate into his arms. He denies any nausea, vomiting, lightheadedness, dizziness, syncope. He describes it as a dull ache. He denies any abdominal pain. He denies any weight loss. Patient presented to [facility] emergency center with the above complaints. His initial blood pressure was elevated at 204/93. EKG showed a ventricular paced rhythm with underlying atrial fibrillation. His troponins were 0.25, 0.52 and 1.18. BNP 1490. BUN 21 and creatinine 1.1. Patient was admitted to the selective care unit and cardiology consult requested. Patient was started on heparin drip and continued on baby aspirin, Lipitor, Coreg, losartan. Echocardiogram has been ordered and patient has been scheduled for heart catheterization. 03/21: Patient underwent heart catheterization with Dr. CORRINA Deng and was found to have occluded RIVAS to LAD and underwent successful stenting of the proximal LAD. Patient was then admitted into the intensive care unit following procedure. He has had a drop in his hemoglobin which is being monitored. He has also been hypertension for which Coreg has been increased and he has received nitroglycerin drip and IV hydralazine. 03/22: Blood pressure is improved but remains on NTG drip. Patient is seen sitting up in a chair eating breakfast. He denies chest pain or shortness of breath. He states he feels much better today. Hemoglobin 9.3. BUN 21 and creatinine 1.3. consult was added for Dr. Ratliff yesterday for intensive care management as patient was not going to be moving out of the intensive care unit. CTA thoracic abdominal aorta reveals persistent large infrarenal abdominal aortic aneurysm with aortobiiliac stent graft that shows as an evidence of tight eye a endoleak which appears more prominent on current study but overall point hope ira aneurysm is not significantly changed. Otherwise no specialists retroperitoneal or. Aortic fluid collection is identified. Objective - Vital Signs Vital signs: Vital Signs Temp 98.3 F 03/22/16 04:00 Pulse 71 03/22/16 07:00 Resp 16 03/22/16 07:00 BP 143/61 03/22/16 07:00 Pulse Ox 92 L 03/22/16 07:00 Intake & Output 03/21/16 03/22/16 03/22/16 18:59 06:59 18:59 Intake Total 1658.15 630 151.85 Output Total 925 925 Balance 733.15 -295 151.85 Weight 79.6 kg Intake: IV 235 230 20 NS @ 20ml/hr 160 230 20 Sodium Chloride 0.9% 1, 75 000 ml @ 75 mls/hr IV . [id number] [facility] Rx#:[id number] Intake, IV Titration 503.15 50 131.85 Amount Magnesium Sulfate-D5w Pmx 300 1 gm In Dextrose/Water 1 100ml.bag @ 100 mls/hr IVPB Q1H [facility] Rx#: [id number] Nitroglycerin-D5w Pmx 50 153.15 131.85 mg In Dextrose/Water 1 250ml.bag @ 20 MCG/MIN 6 mls/hr IV .Q24H JAZ Rx#: [id number] ceFAZolin 1,000 mg In 50 50 Dextrose/Water 1 50ml.bag @ 100 mls/hr IVPB Q8HR [facility] Rx#:[id number] Oral 920 350 Output: Urine 925 925 Other: Voiding Method Urinal Urinal # Voids 1 ABP, PAP, CO, CI - Last Documented Arterial Blood Pressure 111/43 - Exam General appearance: no acute distress - EENT Eyes: Reports anicteric sclerae, Reports EOMI, Reports PERRLA, Reports normal apperance, Denies photophobia, Denies ptosis ENT: Reports hard of hearing, Reports NA/AT, Reports normal oropharynx, Denies thrush, Denies tonsillar exudates, Denies tonsillar swelling Ears: bilateral: normal - Neck Neck: Reports normal ROM, Denies lymphadenopathy, Denies rigidity, Denies stridor, Denies thyromegaly Carotids: bilateral: upstroke delayed Thyroid: bilateral: normal size - Respiratory Respiratory: bilateral: diminished, negative: dullness, rales, rhonchi, wheezing , prolonged expiration, prolonged inspiration - Cardiovascular Rhythm: irregularly irregular Heart sounds: normal: S1, S2 Abnormal Heart Sounds: Reports systolic murmur, Denies rub, Denies click - Gastrointestinal General gastrointestinal: Reports normal bowel sounds, Reports soft, Denies splenomegaly, Denies tenderness, Denies umbilical hernia, Denies ventral hernia - Genitourinary Male genitourinary: enlarged prostate - Integumentary Integumentary: Reports normal, Reports normal turgor, Denies ulcer - Neurologic Neurologic: CNII-XII intact - Musculoskeletal Musculoskeletal: Reports gait normal, Reports strength equal bilaterally - Psychiatric Psychiatric: Reports A&O x's 3, Reports appropriate affect, Reports intact judgment & insight - Labs CBC & Chem 7: 03/22/16 07:05 03/22/16 07:05 Labs: Abnormal Lab Results - Last 24 Hours (Table) 03/22/16 03/22/16 Range/Units 07:05 07:05 RBC 2.89 L (4.30-5.90) m/uL Hgb 9.3 L (13.0-17.5) gm/dL Hct 28.9 L (39.0-53.0) % Plt Count 100 L (150-450) k/uL Lymphocytes # 0.4 L (1.0-4.8) k/uL BUN 21 H (9-20) mg/dL Creatinine 1.30 H (0.66-1.25) mg/dL Glucose 110 H (74-99) mg/dL Total Protein 4.6 L (6.3-8.2) g/dL Albumin 2.8 L (3.5-5.0) g/dL Assessment and Plan Plan: 1. Acute non-ST elevated myocardial infarction status post stenting of the proximal LAD. Coreg dose increased, continue aspirin, Lipitor, and losartan. Cardiology consult appreciated. 2. CAD status post CABG with ischemic cardiomyopathy. Carvedilol increased to 25 mg twice every day, aspirin 81 mg orally once every day, Lipitor 40 mg orally once every, and losartan 25 mg orally once every day. 3. Hypertension and hypertensive cardiovascular disease. Required NTG drip post procedure. Continue losartan 25 mg orally once every day, carvedilol 25 mg orally twice every day. 4. Chronic atrial fibrillation status post permanent pacemaker placement. He shouldn't was taken off his Coumadin because of the risk of bleeding, the risk of CVAs quite elevated at this point in time. Continue Coreg 25 mg orally twice a day as well as aspirin 81 mg orally once every day. 5. Hyperlipidemia. Continue Lipitor 40 mg orally once every day. 6. Gout. Continue allopurinol 300 mg orally once every day. 7. Ischemic cardiomyopathy. Continue losartan 25 mg orally once every day, Coreg 5 mg orally twice every day, Demadex 20 mg orally twice every. 8. Irritable bowel syndrome with chronic diarrhea. We will continue Lomotil as needed. 9. Depressive disorder, recurrent. Continue Paxil 20 mg orally once every day. 10. Lead exposure through [place] range. His lead level was measured recently and was within normal range. 11. GERD with hiatal hernia. Stable. 12. Osteoarthritis. Stable. 13. Anemia of unclear etiology with a drop in hemoglobin following heart catheterization and stent. CTA as noted above. Continue to monitor hemoglobin. 14. DVT prophylaxis. On heparin drip. 15. GI prophylaxis. Continue PPI. Impression and plan of care have been directed as dictated by the signing physician. Vidya Cruz nurse practitioner acting as scribe for signing physician. Time with Patient: Greater than 30
--- NOTE | 2016-03-22 11:03 | P.PN ---
Subjective Progress note dated March 2016 This is a 80-year-old gentleman who sees as his primary doctor. Has a history of underlying coronary disease status post bypass grafting, hyperlipidemia hypertension atrial fibrillation. The patient also has a history of cart a myopathy and has a biventricular AICD device. Anyway the patient came in to the hospital with complaints of chest pain on 03/19/2016. He was found to have a non-ST; elevation myocardial infarction and a cardiac catheterization on was 03/20/2016 and found to have an occluded RIVAS to LAD bypass. He underwent a stenting and was transferred to the ICU. The patient sheath was removed. He stable currently. Is getting no is not getting any supplemental oxygen. The patient is getting an IV 0.9 at KVO nitroglycerin at 20 mics per minute. The patient can probably be transferred out to selective a special unit we continue to wean the nitroglycerin. The other issue with him was a dropping hemoglobin. A computed tomography scan did not reveal any significant areas of bleeding in either the chest or the abdomen. Objective - Vital Signs Vital signs: Vital Signs Temp 98.3 F 03/22/16 04:00 Pulse 71 03/22/16 07:00 Resp 16 03/22/16 07:00 BP 143/61 03/22/16 07:00 Pulse Ox 92 L 03/22/16 07:00 Intake & Output 03/21/16 03/22/16 03/22/16 18:59 06:59 18:59 Intake Total 1658.15 630 151.85 Output Total 925 925 Balance 733.15 -295 151.85 Weight 79.6 kg Intake: IV 235 230 20 NS @ 20ml/hr 160 230 20 Sodium Chloride 0.9% 1, 75 000 ml @ 75 mls/hr IV . [id number] [facility] Rx#:[id number] Intake, IV Titration 503.15 50 131.85 Amount Magnesium Sulfate-D5w Pmx 300 1 gm In Dextrose/Water 1 100ml.bag @ 100 mls/hr IVPB Q1H [facility] Rx#: [id number] Nitroglycerin-D5w Pmx 50 153.15 131.85 mg In Dextrose/Water 1 250ml.bag @ 20 MCG/MIN 6 mls/hr IV .Q24H JAZ Rx#: [id number] ceFAZolin 1,000 mg In 50 50 Dextrose/Water 1 50ml.bag @ 100 mls/hr IVPB Q8HR [facility] Rx#:[id number] Oral 920 350 Output: Urine 925 925 Other: Voiding Method Urinal Urinal # Voids 1 ABP, PAP, CO, CI - Last Documented Arterial Blood Pressure 111/43 - Exam No acute distress, oriented 3. HEENT examination is grossly unremarkable. Mucous membranes are moist. No oral lesions. Neck supple. Full range of motion. No adenopathy. No thyromegaly. Neck veins are flat. Cardiovascular examination reveals regular rhythm rate. S1-S2 normal. No S3- S4 murmur. Lungs reveal relatively clear breath sounds. No wheezes or rhonchi. No crackles. Abdomen soft bowel sounds are heard. Extremities are intact. - Labs CBC & Chem 7: 03/22/16 07:05 03/22/16 07:05 Labs: Abnormal Lab Results - Last 24 Hours (Table) 03/22/16 03/22/16 Range/Units 07:05 07:05 RBC 2.89 L (4.30-5.90) m/uL Hgb 9.3 L (13.0-17.5) gm/dL Hct 28.9 L (39.0-53.0) % Plt Count 100 L (150-450) k/uL Lymphocytes # 0.4 L (1.0-4.8) k/uL BUN 21 H (9-20) mg/dL Creatinine 1.30 H (0.66-1.25) mg/dL Glucose 110 H (74-99) mg/dL Total Protein 4.6 L (6.3-8.2) g/dL Albumin 2.8 L (3.5-5.0) g/dL Assessment and Plan (1) Myocardial infarction Status: Acute (2) Unstable angina pectoris Status: Acute Plan: Plan dated 03/22/2016 The patient seemed be doing relatively well. We'll continue to follow closely. Can be transferred out to [address] [place] [id number] of [place] with cardiology. The patient's only on 0.9 IV at KVO and nitroglycerin at 20 mics per minute. Not requiring any supplemental oxygen. The patient has been very stable here. Labs x-rays medications are all reviewed. Time with Patient: Less than 30
--- NOTE | 2016-03-22 16:27 | P.PN ---
Subjective This is a pleasant 80-year-old gentleman with a known CAD and prior CABG, ischemic cardiomyopathy, and status post AICD, as well as multiple comorbid conditions who was admitted to the hospital was acute non-ST elevation myocardial infarction and underwent a heart catheterization by Dr. CORRINA Deng and was found to have what it seems to be an occluded RIVAS to LAD. He underwent successful stenting of the proximal LAD with a good angiographic results. On follow-up with him today, he seems to be asymptomatic and denies having any chest pain or discomfort or difficulty breathing. The right groin seems to be soft and nontender and without any bruises. I will continue the current medical treatment with dual antiplatelet therapy and statin. Yesterday I increase the dose of Coreg to 25 mg by mouth twice a day for better blood pressure control and the pressure seems to be slightly better. He underwent a computed tomography scan of the abdomen and the chest which showed no evidence of retroperitoneal bleeding but evidence of type I in the leak. Objective - Vital Signs Vital signs: Vital Signs Temp 98.2 F 03/22/16 16:00 Pulse 62 03/22/16 16:00 Resp 16 03/22/16 16:00 BP 153/78 03/22/16 16:00 Pulse Ox 91 L 03/22/16 13:00 Intake & Output 03/21/16 03/22/16 03/22/16 18:59 06:59 18:59 Intake Total 1658.15 630 511.85 Output Total 925 925 600 Balance 733.15 -295 -88.15 Weight 79.6 kg Intake: IV 235 230 140 NS @ 20ml/hr 160 230 140 Sodium Chloride 0.9% 1, 75 000 ml @ 75 mls/hr IV . [id number] JAZ Rx#:[id number] Intake, IV Titration 503.15 50 131.85 Amount Magnesium Sulfate-D5w Pmx 300 1 gm In Dextrose/Water 1 100ml.bag @ 100 mls/hr IVPB Q1H JAZ Rx#: [id number] Nitroglycerin-D5w Pmx 50 153.15 131.85 mg In Dextrose/Water 1 250ml.bag @ 20 MCG/MIN 6 mls/hr IV .Q24H JAZ Rx#: [id number] ceFAZolin 1,000 mg In 50 50 Dextrose/Water 1 50ml.bag @ 100 mls/hr IVPB Q8HR JAZ Rx#:[id number] Oral 920 350 240 Output: Urine 925 925 600 Other: Voiding Method Urinal Urinal Urinal # Voids 1 ABP, PAP, CO, CI - Last Documented Arterial Blood Pressure 111/43 - Constitutional General appearance: Present: no acute distress - Respiratory Respiratory: bilateral: CTA - Cardiovascular Rhythm: regular Heart sounds: normal: S1, S2 - Labs CBC & Chem 7: 03/22/16 07:05 03/22/16 07:05 Labs: Abnormal Lab Results - Last 24 Hours (Table) 03/22/16 03/22/16 Range/Units 07:05 07:05 RBC 2.89 L (4.30-5.90) m/uL Hgb 9.3 L (13.0-17.5) gm/dL Hct 28.9 L (39.0-53.0) % Plt Count 100 L (150-450) k/uL Lymphocytes # 0.4 L (1.0-4.8) k/uL BUN 21 H (9-20) mg/dL Creatinine 1.30 H (0.66-1.25) mg/dL Glucose 110 H (74-99) mg/dL Total Protein 4.6 L (6.3-8.2) g/dL Albumin 2.8 L (3.5-5.0) g/dL Assessment and Plan Plan: Assessment #1 CAD and status post a stenting of the LAD #2 severity underlying PAD #3 chronic anemia #4 multiple comorbid conditions Plan #1 continue the current medical treatment #2 monitor the patient in the ICU for additional 24 hours #3 possible transfer to the floor tomorrow morning
[2016-03-22] MEDS: NITROGLYCERIN-D5W PMX 50 MG in DEXTROSE/WATER 1 250ML.BAG IV SCH (17:47)
[2016-03-22] MEDS: ATORVASTATIN 40 MG TAB PO SCH (20:26)
[2016-03-22] MEDS: PARoxetine 20 MG TAB PO SCH (20:26)
[2016-03-22] MEDS: TERAZOSIN 2 MG CAP PO SCH (20:27)
[2016-03-23 05:12] LABS: CHCM 32.6; HDW 3.04; Macrocytosis Slight
[2016-03-23 05:16] LABS: Basophils % (A) 1 %; CH 32.5; Eosinophils # (A) 0.2 k/uL (0-0.7); Eosinophils % (A) 4 %; HCT 32.7 % (39.0-53.0); HGB 10.4 gm/dL (13.0-17.5); Luc # (Auto) 0.09; Luc % (Auto) 2; Lymphocytes # (A) 0.4 k/uL (1.0-4.8); Lymphocytes % (A) 8 %; MCHC 31.8 g/dL (31.0-37.0); MCV 100.4 fL (80.0-100.0); Monocytes # (A) 0.4 k/uL (0-1.0); Monocytes % (A) 6 %; Neutrophils # (A) 4.4 k/uL (1.3-7.7); Neutrophils % (A) 80 %; RBC 3.26 m/uL (4.30-5.90); RDW 15.3 % (11.5-15.5); WBC 5.6 k/uL (3.8-10.6)
[2016-03-23] MEDS: ALPRAZolam 0.25 MG TAB PO PRN (05:49)
[2016-03-23] MEDS: ALLOPURINOL 300 MG TAB PO SCH (08:37)
[2016-03-23] MEDS: CLOPIDOGREL 75 MG TAB PO SCH (08:37)
[2016-03-23] MEDS: CARVEDILOL 12.5 MG TAB PO SCH ×2 (08:37→18:15)
[2016-03-23] MEDS: TORSEMIDE 20 MG TAB PO SCH ×2 (08:37→20:13)
[2016-03-23] MEDS: PANTOPRAZOLE 40 MG TABLET PO SCH (08:37)
[2016-03-23] MEDS: ASPIRIN 81 MG CHEW PO SCH (08:37)
[2016-03-23] MEDS: LOSARTAN 25 MG TAB PO SCH (08:37)
--- NOTE | 2016-03-23 11:11 | P.PN ---
Subjective This is a very pleasant 80-year-old gentleman who follows with Dr. Ordonez is his primary care physician. He has a history of coronary artery disease status post coronary artery bypass grafting in 1997, hyperlipidemia, hypertension, atrial fibrillation not on anticoagulants secondary to history of bleeding into his joints, cardiomyopathy status post biventricular AICD, irritable bowel syndrome, gout and the previous MRSA infection of the knee. He is a former smoker but denies any significant pulmonary disease. He presented here 2016 with complaints of chest pain. He was found to have non-ST segment elevation myocardial infarction and had undergone cardiac catheterization on 08/2016 and found to have occluded RIVAS to the LAD and subsequent stenting to the LAD. Note that they catheterization showed a 95% mid LAD lesion and the RIVSA was totally occluded beyond the insertion site and the patient underwent a successful stenting of the LAD with good angiographic results. No intervention was done for the RIVAS. He has been on dual antiplatelet therapy. He is seen today in the ICU . Note that the patient was doing well and he demonstrated significant drop in his hemoglobin and based on that a CAT scan of the abdomen and the chest was done and showed no evidence of any retroperitoneal bleed mouth however there was a persistent and large infrarenal abdominal aortic aneurysm with a wart though biiliac stent graft that showed evidence of a type I a and O leak which appeared slightly more prominent, but overall [place] aneurysm has not significantly changed. Otherwise, there was no suspicious retroperitoneal or para-aortic fluid collection. Since then, the patient's hemoglobin has remained stable in the subsequent hemoglobin is up to 10.4. The patient did not receive any blood transfusions. Echocardiac Phil was also completed and the patient has an ejection fraction of 55-60%. The right ventricular is severely enlarged. The rest of the cardiac structures including the valves are all within normal limits. The patient's current rhythm is a paced. He is on no anticoagulants. Objective - Vital Signs Vital signs: Vital Signs Temp 97.7 F 03/23/16 08:00 Pulse 60 03/23/16 09:00 Resp 10 L 03/23/16 09:00 BP 139/66 03/23/16 09:00 Pulse Ox 96 03/23/16 09:00 Intake & Output 03/22/16 03/23/16 03/23/16 18:59 06:59 18:59 Intake Total 553.85 130 Output Total 700 750 Balance -146.15 -620 Weight 80.9 kg Intake: IV 140 NS @ 20ml/hr 140 Intake, IV Titration 173.85 Amount Nitroglycerin-D5w Pmx 50 173.85 mg In Dextrose/Water 1 250ml.bag @ 20 MCG/MIN 6 mls/hr IV .Q24H JAZ Rx#: [id number] Oral 240 130 Output: Urine 700 750 Other: Voiding Method Urinal Urinal Urinal # Voids 0 0 # Bowel Movements 1 ABP, PAP, CO, CI - Last Documented Arterial Blood Pressure 111/43 - Exam The patient appeared well nourished and normally developed. Vital signs as documented. Head exam is unremarkable. No scleral icterus or corneal arcus noted. Neck is without jugular venous distension, thyromegaly, or carotid bruits. Carotid upstrokes are brisk bilaterally. Lungs are clear to auscultation and percussion. Cardiac exam reveals the PMI to be normally sized and situated. Rhythm is regular. First and second heart sounds normal. No murmurs, rubs or gallops. Abdominal exam reveals normal bowel sounds, no masses , no organomegaly and no aortic enlargement. Extremities are nonedematous and both femoral and pedal pulses are normal. - Labs CBC & Chem 7: 03/23/16 04:13 03/22/16 07:05 Labs: Abnormal Lab Results - Last 24 Hours (Table) 03/23/16 Range/Units 04:13 RBC 3.26 L (4.30-5.90) m/uL Hgb 10.4 L (13.0-17.5) gm/dL Hct 32.7 L (39.0-53.0) % MCV 100.4 H (80.0-100.0) fL Plt Count 100 L (150-450) k/uL Lymphocytes # 0.4 L (1.0-4.8) k/uL Assessment and Plan Plan: Impression: #1 Non-ST segment elevation myocardial infarction secondary to occluded RIVAS to the LAD. Status post stenting to the LAD. The patient is doing well. The patient is hemodynamically stable. No ongoing chest pain for now. He is a telemetry overflow. #2 postoperative anemia/drop in hemoglobin as low as 9.3.. No evidence of any endovascular leak and the patient's hemoglobin is up to 10.4. #3 Chronic atrial fibrillation, not anticoagulated secondary to history of previous bleeding into the joints. #4 History of coronary artery disease, status post coronary artery bypass grafting in 1997. #5 Ischemic cardiomyopathy status post biventricular AICD. Improved left ventricular systolic function current ejection fraction 55-60%. #6 Remote history of chronic nicotine addiction. #7 Hypertension. #8 Hyperlipidemia. #9 Carotid artery stenosis status post carotid endarterectomy. #10 History of abdominal aortic aneurysm, status post endograft placement. Please refer to the most recent CTA of the aorta that showed a large infrarenal abdominal aortic aneurysm with a stent graft that shows a type IA endoleak somewhat more prominent yet no suspicious retroperitoneal or para-aortic bleed/ fluid collection. Plan Patient is stable for now. Continue monitoring the hemoglobin. Continue same treatment. No other changes from my standpoint and the patient can be transferred to telemetry unit today.
--- NOTE | 2016-03-23 13:35 | P.PN ---
Subjective This is a 79-year-old male patient of with a previous medical history significant for coronary artery disease status post coronary artery bypass graft for 5 vessel is back in 1997 with ischemic cardiomyopathy status post AICD/permanent pacemaker placement, hypertension and hypertensive cardiovascular disease, hyperlipidemia, atrial fibrillation. Patient states he developed chest pain yesterday that went across his upper chest and to the bilateral shoulders. It did not radiate into his arms. He denies any nausea, vomiting, lightheadedness, dizziness, syncope. He describes it as a dull ache. He denies any abdominal pain. He denies any weight loss. Patient presented to [facility] emergency center with the above complaints. His initial blood pressure was elevated at 204/93. EKG showed a ventricular paced rhythm with underlying atrial fibrillation. His troponins were 0.25, 0.52 and 1.18. BNP 1490. BUN 21 and creatinine 1.1. Patient was admitted to the selective care unit and cardiology consult requested. Patient was started on heparin drip and continued on baby aspirin, Lipitor, Coreg, losartan. Echocardiogram has been ordered and patient has been scheduled for heart catheterization. 03/21: Patient underwent heart catheterization with Dr. CORRINA Deng and was found to have occluded RIVAS to LAD and underwent successful stenting of the proximal LAD. Patient was then admitted into the intensive care unit following procedure. He has had a drop in his hemoglobin which is being monitored. He has also been hypertension for which Coreg has been increased and he has received nitroglycerin drip and IV hydralazine. 03/22: Blood pressure is improved but remains on NTG drip. Patient is seen sitting up in a chair eating breakfast. He denies chest pain or shortness of breath. He states he feels much better today. Hemoglobin 9.3. BUN 21 and creatinine 1.3. consult was added for Dr. Ratliff yesterday for intensive care management as patient was not going to be moving out of the intensive care unit. CTA thoracic abdominal aorta reveals persistent large infrarenal abdominal aortic aneurysm with aortobiiliac stent graft that shows as an evidence of tight eye a endoleak which appears more prominent on current study but overall [place] aneurysm is not significantly changed. Otherwise no suspicious retroperitoneal or periaortic fluid collection is identified. 03/23: Patient has been hemodynamically stable. He states he is feeling very well today. He'll be transferred to the selective care unit with possible discharge by tomorrow. Objective - Vital Signs Vital signs: Vital Signs Temp 97.7 F 03/23/16 08:00 Pulse 60 03/23/16 09:00 Resp 10 L 03/23/16 09:00 BP 139/66 03/23/16 09:00 Pulse Ox 96 03/23/16 09:00 Intake & Output 03/22/16 03/23/16 03/23/16 18:59 06:59 18:59 Intake Total 553.85 130 Output Total 700 750 Balance -146.15 -620 Weight 80.9 kg Intake: IV 140 NS @ 20ml/hr 140 Intake, IV Titration 173.85 Amount Nitroglycerin-D5w Pmx 50 173.85 mg In Dextrose/Water 1 250ml.bag @ 20 MCG/MIN 6 mls/hr IV .Q24H JAZ Rx#: [id number] Oral 240 130 Output: Urine 700 750 Other: Voiding Method Urinal Urinal Urinal # Voids 0 0 # Bowel Movements 1 ABP, PAP, CO, CI - Last Documented Arterial Blood Pressure 111/43 - Exam General appearance: no acute distress - EENT Eyes: Reports anicteric sclerae, Reports EOMI, Reports PERRLA, Reports normal apperance, Denies photophobia, Denies ptosis ENT: Reports hard of hearing, Reports NA/AT, Reports normal oropharynx, Denies thrush, Denies tonsillar exudates, Denies tonsillar swelling Ears: bilateral: normal - Neck Neck: Reports normal ROM, Denies lymphadenopathy, Denies rigidity, Denies stridor, Denies thyromegaly Carotids: bilateral: upstroke delayed Thyroid: bilateral: normal size - Respiratory Respiratory: bilateral: diminished, negative: dullness, rales, rhonchi, wheezing , prolonged expiration, prolonged inspiration - Cardiovascular Rhythm: irregularly irregular Heart sounds: normal: S1, S2 Abnormal Heart Sounds: Reports systolic murmur, Denies rub, Denies click - Gastrointestinal General gastrointestinal: Reports normal bowel sounds, Reports soft, Denies splenomegaly, Denies tenderness, Denies umbilical hernia, Denies ventral hernia - Genitourinary Male genitourinary: enlarged prostate - Integumentary Integumentary: Reports normal, Reports normal turgor, Denies ulcer - Neurologic Neurologic: CNII-XII intact - Musculoskeletal Musculoskeletal: Reports gait normal, Reports strength equal bilaterally - Psychiatric Psychiatric: Reports A&O x's 3, Reports appropriate affect, Reports intact judgment & insight - Labs CBC & Chem 7: 03/23/16 04:13 03/22/16 07:05 Labs: Abnormal Lab Results - Last 24 Hours (Table) 03/23/16 Range/Units 04:13 RBC 3.26 L (4.30-5.90) m/uL Hgb 10.4 L (13.0-17.5) gm/dL Hct 32.7 L (39.0-53.0) % MCV 100.4 H (80.0-100.0) fL Plt Count 100 L (150-450) k/uL Lymphocytes # 0.4 L (1.0-4.8) k/uL Assessment and Plan Plan: 1. Acute non-ST elevated myocardial infarction status post stenting of the proximal LAD. Coreg dose increased, continue aspirin, Lipitor, and losartan. Cardiology consult appreciated. 2. CAD status post CABG with ischemic cardiomyopathy. Carvedilol increased to 25 mg twice every day, aspirin 81 mg orally once every day, Lipitor 40 mg orally once every, and losartan 25 mg orally once every day. 3. Hypertension and hypertensive cardiovascular disease. Required NTG drip post procedure. Continue losartan 25 mg orally once every day, carvedilol 25 mg orally twice every day. 4. Chronic atrial fibrillation status post permanent pacemaker placement. He shouldn't was taken off his Coumadin because of the risk of bleeding, the risk of CVAs quite elevated at this point in time. Continue Coreg 25 mg orally twice a day as well as aspirin 81 mg orally once every day. 5. Hyperlipidemia. Continue Lipitor 40 mg orally once every day. 6. Gout. Continue allopurinol 300 mg orally once every day. 7. Ischemic cardiomyopathy. Continue losartan 25 mg orally once every day, Coreg 5 mg orally twice every day, Demadex 20 mg orally twice every. 8. Irritable bowel syndrome with chronic diarrhea. We will continue Lomotil as needed. 9. Depressive disorder, recurrent. Continue Paxil 20 mg orally once every day. 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 His lead level was measured recently and was within normal range. 11. GERD with hiatal hernia. Stable. 12. Osteoarthritis. Stable. 13. Anemia of unclear etiology with a drop in hemoglobin following heart catheterization and stent. CTA as noted above. Continue to monitor hemoglobin. 14. DVT prophylaxis. On heparin drip. 15. GI prophylaxis. Continue PPI. Discharge plan: Home tomorrow Impression and plan of care have been directed as dictated by the signing physician. Vidya Cruz nurse practitioner acting as scribe for signing physician. Time with Patient: Greater than 30
--- NOTE | 2016-03-23 15:14 | P.PN ---
Subjective Principal diagnosis: Acute non-ST elevation [place] This is a pleasant 80-year-old gentleman with a known CAD and prior CABG, ischemic cardiomyopathy, and status post AICD, as well as multiple comorbid conditions who was admitted to the hospital was acute non-ST elevation myocardial infarction and underwent a heart catheterization by Dr. CORRINA Deng and was found to have what it seems to be an occluded RIVAS to LAD. He underwent successful stenting of the proximal LAD with a good angiographic results. On follow-up with him today, he seems to be asymptomatic and denies having any chest pain or discomfort or difficulty breathing. The right groin seems to be soft and nontender and without any bruises. I will continue the current medical treatment with dual antiplatelet therapy and statin. The patient can be transferred to E. Objective - Vital Signs Vital signs: Vital Signs Temp 97.9 F 03/23/16 12:00 Pulse 66 03/23/16 15:00 Resp 21 03/23/16 15:00 BP 148/63 03/23/16 15:00 Pulse Ox 95 03/23/16 15:00 Intake & Output 03/22/16 03/23/16 03/23/16 18:59 06:59 18:59 Intake Total 553.85 130 Output Total 700 750 250 Balance -146.15 -620 -250 Weight 80.9 kg Intake: IV 140 NS @ 20ml/hr 140 Intake, IV Titration 173.85 Amount Nitroglycerin-D5w Pmx 50 173.85 mg In Dextrose/Water 1 250ml.bag @ 20 MCG/MIN 6 mls/hr IV .Q24H JAZ Rx#: [id number] Oral 240 130 Output: Urine 700 750 250 Other: Voiding Method Urinal Urinal Urinal # Voids 0 0 # Bowel Movements 1 ABP, PAP, CO, CI - Last Documented Arterial Blood Pressure 111/43 - Constitutional General appearance: Present: no acute distress - Respiratory Respiratory: bilateral: CTA - Cardiovascular Rhythm: regular Heart sounds: normal: S1, S2 - Labs CBC & Chem 7: 03/23/16 04:13 03/22/16 07:05 Labs: Abnormal Lab Results - Last 24 Hours (Table) 03/23/16 Range/Units 04:13 RBC 3.26 L (4.30-5.90) m/uL Hgb 10.4 L (13.0-17.5) gm/dL Hct 32.7 L (39.0-53.0) % MCV 100.4 H (80.0-100.0) fL Plt Count 100 L (150-450) k/uL Lymphocytes # 0.4 L (1.0-4.8) k/uL Assessment and Plan Plan: Assessment #1 CAD and status post a stenting of the LAD #2 severity underlying PAD #3 chronic anemia #4 multiple comorbid conditions Plan #1 continue the current medical treatment #2 monitor the patient in the ICU for additional 24 hours #3 possible transfer to the floor today
[2016-03-23 19:58] VITALS: RESP 16
[2016-03-23] MEDS: PARoxetine 20 MG TAB PO SCH (20:13)
[2016-03-23] MEDS: TERAZOSIN 2 MG CAP PO SCH (20:13)
[2016-03-23] MEDS: ATORVASTATIN 40 MG TAB PO SCH (20:13)
[2016-03-24 06:33] LABS: Basophils % (A) 0 %; CH 32.4; CHCM 32.6; Eosinophils # (A) 0.2 k/uL (0-0.7); Eosinophils % (A) 4 %; HCT 28.9 % (39.0-53.0); HDW 3.02; HGB 9.4 gm/dL (13.0-17.5); Luc # (Auto) 0.16; Luc % (Auto) 3; Lymphocytes # (A) 0.5 k/uL (1.0-4.8); Lymphocytes % (A) 10 %; MCH 32.5 pg (25.0-35.0); MCHC 32.5 g/dL (31.0-37.0); MCV 100.1 fL (80.0-100.0); Macrocytosis Slight; Mean Platelet Volume 7.9; Monocytes # (A) 0.3 k/uL (0-1.0); Monocytes % (A) 6 %; Neutrophils # (A) 3.9 k/uL (1.3-7.7); Neutrophils % (A) 77 %; RBC 2.89 m/uL (4.30-5.90); RDW 15.3 % (11.5-15.5); WBC 5.1 k/uL (3.8-10.6); WBC (Perox) 5.26
[2016-03-24] MEDS: PANTOPRAZOLE 40 MG TABLET PO SCH (06:34)
[2016-03-24] MEDS: CARVEDILOL 12.5 MG TAB PO SCH (06:34)
[2016-03-24] MEDS ORDERED: LOSARTAN 50 MG TAB PO SCH (09:00)
[2016-03-24] MEDS: CLOPIDOGREL 75 MG TAB PO SCH (09:06)
[2016-03-24] MEDS: TORSEMIDE 20 MG TAB PO SCH (09:06)
[2016-03-24] MEDS: ASPIRIN 81 MG CHEW PO SCH (09:06)
[2016-03-24] MEDS: ALLOPURINOL 300 MG TAB PO SCH (09:06)
--- NOTE | 2016-03-24 12:10 | P.PN ---
Subjective This is a very pleasant 80-year-old gentleman who follows with Dr. Ordonez is his primary care physician. He has a history of coronary artery disease status post coronary artery bypass grafting in 1997, hyperlipidemia, hypertension, atrial fibrillation not on anticoagulants secondary to history of bleeding into his joints, cardiomyopathy status post biventricular AICD, irritable bowel syndrome, gout and the previous MRSA infection of the knee. He is a former smoker but denies any significant pulmonary disease. He presented here 2016 with complaints of chest pain. He was found to have non-ST segment elevation myocardial infarction and had undergone cardiac catheterization on 08/2016 and found to have occluded RIVAS to the LAD and subsequent stenting to the LAD. Note that they catheterization showed a 95% mid LAD lesion and the RIVAS was totally occluded beyond the insertion site and the patient underwent a successful stenting of the LAD with good angiographic results. No intervention was done for the RIVAS. He has been on dual antiplatelet therapy. He is seen today in the ICU . Note that the patient was doing well and he demonstrated significant drop in his hemoglobin and based on that a CAT scan of the abdomen and the chest was done and showed no evidence of any retroperitoneal bleed mouth however there was a persistent and large infrarenal abdominal aortic aneurysm with a wart though biiliac stent graft that showed evidence of a type I a and O leak which appeared slightly more prominent, but overall [place] aneurysm has not significantly changed. Otherwise, there was no suspicious retroperitoneal or para-aortic fluid collection. Since then, the patient's hemoglobin has remained stable in the subsequent hemoglobin is up to 10.4. The patient did not receive any blood transfusions. Echo he is doing well. was also completed and the patient has an ejection fraction of 55-60%. The right ventricular is severely enlarged. The rest of the cardiac structures including the valves are all within normal limits. The patient's current rhythm is a paced. He is on no anticoagulants. On 03/24/2016 the patient is being seen in follow-up. Has no specific complaints. No chest pain. Hemoglobin remains stable. He was moved out of the intensive care unit last night. Echocardiogram was reviewed. Tolerating diet. No nausea or vomiting. No abdominal pain. No chest pain. Objective - Vital Signs Vital signs: Vital Signs Temp 98.6 F 03/24/16 08:00 Pulse 58 L 03/24/16 08:00 Resp 16 03/24/16 08:00 BP 107/53 03/24/16 08:00 Pulse Ox 95 03/24/16 08:00 Intake & Output 03/23/16 03/24/16 03/24/16 18:59 06:59 18:59 Intake Total 240 Output Total 450 400 Balance -450 -400 240 Weight 80.9 kg Intake: Oral 240 Output: Urine 450 400 Other: Voiding Method Urinal # Voids 1 1 ABP, PAP, CO, CI - Last Documented Arterial Blood Pressure 111/43 - Exam The patient appeared well nourished and normally developed. Vital signs as documented. Head exam is unremarkable. No scleral icterus or corneal arcus noted. Neck is without jugular venous distension, thyromegaly, or carotid bruits. Carotid upstrokes are brisk bilaterally. Lungs are clear to auscultation and percussion. Cardiac exam reveals the PMI to be normally sized and situated. Rhythm is regular. First and second heart sounds normal. No murmurs, rubs or gallops. Abdominal exam reveals normal bowel sounds, no masses , no organomegaly and no aortic enlargement. Extremities are nonedematous and both femoral and pedal pulses are normal. - Labs CBC & Chem 7: 03/24/16 05:40 03/22/16 07:05 Labs: Abnormal Lab Results - Last 24 Hours (Table) 03/24/16 Range/Units 05:40 RBC 2.89 L (4.30-5.90) m/uL Hgb 9.4 L (13.0-17.5) gm/dL Hct 28.9 L (39.0-53.0) % MCV 100.1 H (80.0-100.0) fL Plt Count 101 L (150-450) k/uL Lymphocytes # 0.5 L (1.0-4.8) k/uL Assessment and Plan Plan: Impression: #1 Non-ST segment elevation myocardial infarction secondary to occluded RIVAS to the LAD. Status post stenting to the LAD. The patient is doing well. The patient is hemodynamically stable. No ongoing chest pain for now. On 03/24/2016, the patient remains essentially stable. No chest pain. No cardiac events. He has a stable postoperative course following his cardiac catheterization and angioplasty and stenting of the LAD. #2 postoperative anemia/drop in hemoglobin as low as 9.3.. No evidence of any endovascular leak and the patient's hemoglobin is stable for now. #3 Chronic atrial fibrillation, not anticoagulated secondary to history of previous bleeding into the joints. #4 History of coronary artery disease, status post coronary artery bypass grafting in 1997. #5 Ischemic cardiomyopathy status post biventricular AICD. Improved left ventricular systolic function current ejection fraction 55-60%. #6 Remote history of chronic nicotine addiction. #7 Hypertension. #8 Hyperlipidemia. #9 Carotid artery stenosis status post carotid endarterectomy. #10 History of abdominal aortic aneurysm, status post endograft placement. Please refer to the most recent CTA of the aorta that showed a large infrarenal abdominal aortic aneurysm with a stent graft that shows a type IA endoleak somewhat more prominent yet no suspicious retroperitoneal or para-aortic bleed/ fluid collection. Plan Patient is stable for now. No active pulmonary or critical care issue. We'll sign off the case.
--- NOTE | 2016-03-24 12:18 | P.PN ---
Subjective Principal diagnosis: Non-STEMI This is a pleasant 80-year-old gentleman with known history of coronary artery disease and prior bypass surgery, ischemic cardio myopathy, prior AICD, hypertension, hyperlipidemia, who was admitted to the hospital with a non-ST elevation myocardial infarction. He underwent angioplasty with stenting of the LAD by Dr. Sheri Deng. Patient was seen and examined this morning he's been up ambulating without any difficulty. Denies any further chest discomfort. Planning for discharge home today. A follow-up appointment will be made with Dr. Sheri Deng in the office in one week post discharge. Objective - Vital Signs Vital signs: Vital Signs Temp 98.6 F 03/24/16 08:00 Pulse 58 L 03/24/16 08:00 Resp 16 03/24/16 08:00 BP 107/53 03/24/16 08:00 Pulse Ox 95 03/24/16 08:00 Intake & Output 03/23/16 03/24/16 03/24/16 18:59 06:59 18:59 Intake Total 240 Output Total 450 400 Balance -450 -400 240 Weight 80.9 kg Intake: Oral 240 Output: Urine 450 400 Other: Voiding Method Urinal # Voids 1 1 ABP, PAP, CO, CI - Last Documented Arterial Blood Pressure 111/43 - Exam PHYSICAL EXAMINATION: HEENT: Head is atraumatic, normocephalic. Pupils equal, round. Neck is supple. There is no elevated jugular venous pressure. HEART EXAMINATION: Heart S1, S2 normal. No murmur or gallop heard. CHEST EXAMINATION: Lungs are clear to auscultation and precussion. No chest wall tenderness is noted on palpation or with deep breathing. ABDOMEN: Soft, nontender. Bowel sounds are heard. No organomegaly noted. EXTREMITIES: 2+ peripheral pulses with no evidence of peripheral edema and no calf tenderness noted. NEUROLOGIC patient is awake, alert and oriented -3. . - Labs CBC & Chem 7: 03/24/16 05:40 03/22/16 07:05 Labs: Abnormal Lab Results - Last 24 Hours (Table) 03/24/16 Range/Units 05:40 RBC 2.89 L (4.30-5.90) m/uL Hgb 9.4 L (13.0-17.5) gm/dL Hct 28.9 L (39.0-53.0) % MCV 100.1 H (80.0-100.0) fL Plt Count 101 L (150-450) k/uL Lymphocytes # 0.5 L (1.0-4.8) k/uL Assessment and Plan (1) Non-ST elevated myocardial infarction Status: Acute (2) Presence of stent in LAD coronary artery Status: Acute (3) Hx of CABG Status: Acute (4) Ischemic cardiomyopathy Status: Acute (5) AICD (automatic cardioverter/defibrillator) present Status: Acute (6) HTN (hypertension) Status: Acute (7) Hyperlipemia Status: Acute Plan: From cardiology's perspective, patient may be able to be discharged home today. We will make a follow-up appointment with Dr. Sheri Deng in the office post discharge. DNP note has been reviewed, I agree with a documented findings and plan of care. Patient was seen and examined.
[2016-03-24 13:14] VITALS: BP 124/58; PULSE 56; TEMP 97.6
--- NOTE | 2016-03-24 14:36 | P.DS ---
Providers Date of admission: 03/19/16 15:46 Expected date of discharge: 03/24/16 Attending physician: Shelia Lucas Consults: 03/20/16 15:53 Consult Physician Routine Consulting Provider: [facility] Consult Reason/Comments: Post Interventional patient Do you want consulting provider notified?: Already Contacted 03/21/16 08:37 Consult Physician Routine Consulting Provider: Dejon Ratliff Consult Reason/Comments: ICU management Do you want consulting provider notified?: Yes Primary care physician: Ameena Ordonez [facility] Course: This is a 79-year-old male patient of with a previous medical history significant for coronary artery disease status post coronary artery bypass graft for 5 vessel is back in 1997 with ischemic cardiomyopathy status post AICD/permanent pacemaker placement, hypertension and hypertensive cardiovascular disease, hyperlipidemia, atrial fibrillation. Patient states he developed chest pain yesterday that went across his upper chest and to the bilateral shoulders. It did not radiate into his arms. He denies any nausea, vomiting, lightheadedness, dizziness, syncope. He describes it as a dull ache. He denies any abdominal pain. He denies any weight loss. Patient presented to [facility] emergency center with the above complaints. His initial blood pressure was elevated at 204/93. EKG showed a ventricular paced rhythm with underlying atrial fibrillation. His troponins were 0.25, 0.52 and 1.18. BNP 1490. BUN 21 and creatinine 1.1. Patient was admitted to the selective care unit and cardiology consult requested. Patient was started on heparin drip and continued on baby aspirin, Lipitor, Coreg, losartan. Echocardiogram has been ordered and patient has been scheduled for heart catheterization. 03/21: Patient underwent heart catheterization with Dr. CORRINA Deng and was found to have occluded RIVAS to LAD and underwent successful stenting of the proximal LAD. Patient was then admitted into the intensive care unit following procedure. He has had a drop in his hemoglobin which is being monitored. He has also been hypertension for which Coreg has been increased and he has received nitroglycerin drip and IV hydralazine. 03/22: Blood pressure is improved but remains on NTG drip. Patient is seen sitting up in a chair eating breakfast. He denies chest pain or shortness of breath. He states he feels much better today. Hemoglobin 9.3. BUN 21 and creatinine 1.3. consult was added for Dr. Ratliff yesterday for intensive care management as patient was not going to be moving out of the intensive care unit. CTA thoracic abdominal aorta reveals persistent large infrarenal abdominal aortic aneurysm with aortobiiliac stent graft that shows as an evidence of tight eye a endoleak which appears more prominent on current study but overall nightmute aneurysm is not significantly changed. Otherwise no suspicious retroperitoneal or periaortic fluid collection is identified. 03/23: Patient has been hemodynamically stable. He states he is feeling very well today. He'll be transferred to the selective care unit with possible discharge by tomorrow. 03/24: Patient has been cleared by loan processing supervisor for discharge home. He does have increased dose of Coreg to 25 mg twice daily and losartan was increased today to 50 mg daily. Patient will be discharged home today in stable condition. Discharge diagnoses: 1. Acute non-ST elevated myocardial infarction status post stenting of the proximal LAD. 2. CAD status post CABG with ischemic cardiomyopathy. 3. Hypertension and hypertensive cardiovascular disease. 4. Chronic atrial fibrillation status post permanent pacemaker placement. 5. Hyperlipidemia. 6. Gout. 7. Ischemic cardiomyopathy. 8. Irritable bowel syndrome with chronic diarrhea. 9. Depressive disorder, recurrent. 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 11. GERD with hiatal hernia. 12. Osteoarthritis. 13. Anemia of unclear etiology with a drop in hemoglobin following heart catheterization and stent. No signs of active bleeding. Discharge plan: Home Impression and plan of care have been directed as dictated by the signing physician. Vidya Cruz nurse practitioner acting as scribe for signing physician. Patient Condition at Discharge: Good Plan - Discharge Summary New Discharge Prescriptions: Carvedilol [Coreg*] 25 mg PO BID-W/MEALS #120 tab Clopidogrel [Plavix] 75 mg PO DAILY #30 tab Losartan [Cozaar] 50 mg PO DAILY #30 tab Nitroglycerin Sl Tabs [Nitrostat] 0.4 mg SUBLINGUAL Q5M PRN #25 tab PRN Reason: Chest Pain Discharge Medication List Allopurinol [Zyloprim] 300 mg PO QAM 11/23/13 [History] Aspirin 81 mg PO DAILY 11/23/13 [History] Atorvastatin [Lipitor] 40 mg PO HS 11/23/13 [History] Dicyclomine [Bentyl] 10 mg PO TID PRN 11/23/13 [History] Diphenoxylate HCl/Atropine [Lomotil] 1 tab PO QID PRN 11/23/13 [History] PARoxetine [Paxil] 20 mg PO HS 11/23/13 [History] Terazosin [Hytrin] 2 mg PO HS 11/23/13 [History] Diazepam [Valium] 5 mg PO BID PRN 07/23/14 [History] Acetaminophen [Tylenol] 325 mg PO Q4H PRN 09/03/15 [History] Torsemide 20 mg PO BID 03/19/16 [History] Carvedilol [Coreg*] 25 mg PO BID-W/MEALS #120 tab 03/24/16 [Rx] Clopidogrel [Plavix] 75 mg PO DAILY #30 tab 03/24/16 [Rx] Losartan [Cozaar] 50 mg PO DAILY #30 tab 03/24/16 [Rx] Nitroglycerin Sl Tabs [Nitrostat] 0.4 mg SUBLINGUAL Q5M PRN #25 tab 03/24/16 [Rx ] Follow up Appointment(s)/Referral(s): Jono Deng MD [STAFF PHYSICIAN] - 1 Week (Office will call with appointment ) Ameena Ordonez MD [Primary Care Provider] - 03/25/16 3:00 pm Patient Instructions/Handouts: Angina (DC), Myocardial Infarction (DC) Discharge Disposition: HOME SELF-CARE
[2016-03-24 14:48] LABS: Calcium 8.5 mg/dL (8.4-10.2); Potassium 4.1 mmol/L (3.5-5.1)
== END 2016-03-24 15:00 | disposition home or self-care (01) | DRG 247 ==
LOC: EC 13:26 → 6SEL 15:46 → 6ICU 03-20 15:29 → 6SEL 03-23 17:27
PROVIDERS: ADMIT Internal Medicine; ATTEND Internal Medicine
PROC: B2111ZZ Fluoroscopy of Multiple Coronary Arteries using Low Osmolar Contrast (ICD-10-PCS; 2016-03-20)
PROC: B2181ZZ Fluoroscopy of Left Internal Mammary Bypass Graft using Low Osmolar Contrast (ICD-10-PCS; 2016-03-20)
PROC: 027034Z Dilation of Coronary Artery, One Artery with Drug-eluting Intraluminal Device, Percutaneous Approach (ICD-10-PCS; principal; 2016-03-20 12:55)
PROC: 4A023N7 Measurement of Cardiac Sampling and Pressure, Left Heart, Percutaneous Approach (ICD-10-PCS; 2016-03-20 12:55)
DX: I21.4 Non-ST elevation (NSTEMI) myocardial infarction (principal); I48.1 Persistent atrial fibrillation; I11.0 Hypertensive heart disease with heart failure; I50.9 Heart failure, unspecified; I25.810 Atherosclerosis of coronary artery bypass graft(s) without angina pectoris; F33.9 Major depressive disorder, recurrent, unspecified; D64.9 Anemia, unspecified; E78.5 Hyperlipidemia, unspecified; I25.5 Ischemic cardiomyopathy; I48.2 Chronic atrial fibrillation; I65.29 Occlusion and stenosis of unspecified carotid artery; I71.4 Abdominal aortic aneurysm, without rupture; K21.9 Gastro-esophageal reflux disease without esophagitis; K44.9 Diaphragmatic hernia without obstruction or gangrene; K58.0 Irritable bowel syndrome with diarrhea; M10.9 Gout, unspecified; M19.90 Unspecified osteoarthritis, unspecified site; I25.10 Atherosclerotic heart disease of native coronary artery without angina pectoris; I73.9 Peripheral vascular disease, unspecified; N40.0 Benign prostatic hyperplasia without lower urinary tract symptoms; Z79.82 Long term (current) use of aspirin; Z79.899 Other long term (current) drug therapy; Z86.14 Personal history of Methicillin resistant Staphylococcus aureus infection; Z87.891 Personal history of nicotine dependence; Z95.810 Presence of automatic (implantable) cardiac defibrillator; Z95.1 Presence of aortocoronary bypass graft; Z88.0 Allergy status to penicillin
CPT/HCPCS: 36415; 71020; 71275; 75635; 80048; 80053; 80061; 82550; 82553; 83735; 83880; 84484; 85025; 85610; 85730; 93005; 93306; 93459; 96374; 96375; 99291

== ENCOUNTER 2016-04-02 18:05 | Emergency (ER) | payer MEDICARE ==
[2016-04-02 18:30] VITALS: PULSE 50; TEMP 97.4
--- NOTE | 2016-04-02 19:14 | ED ---
General Adult HPI - General Chief complaint: Extremity Injury, Upper Stated complaint: shoulder pain Time Seen by Provider: 04/02/16 18:55 Source: patient, RN notes reviewed Mode of arrival: wheelchair Limitations: no limitations - History of Present Illness Initial comments: This is a 80-year-old male presents with right shoulder pain and swelling that started at 3 PM today. Patient states he was just put on Plavix for an DE ~9 days ago. Patient states he has a history of a rotator cuff tear and has been on Plavix in the past which caused build up of blood into the right shoulder joint. Patient states he has had to have this right shoulder drained 3 times in the past for this problem. Patient states when he was taken off of his Plavix in the past he no longer had problems with right shoulder pain. Patient states since he has been recently placed on Plavix again this is the same pain he has felt in the past in the right shoulder. Patient states [facility] and spoke with Dr. Chou who stated that he should come to the [facility] to have his shoulder drained. Patient states the pain is worse with flexion and extension of the right upper extremity. Patient denies any numbness/tingling or weakness to the right upper extremity. Patient is able to bend the right upper extremity at the elbow joint and move the wrist and fingers of the right hand. Patient states he took 2 [place] before coming into the [facility] today. Patient denies any recent fever, chills, shortness breath, chest pain, abdominal pain, nausea/vomiting/diarrhea, back pain, hematuria, headache , or visual changes, or any other complaints. - Related Data Home Medications Medication Instructions Recorded Confirmed Allopurinol [Zyloprim] 300 mg PO QAM 11/23/13 04/02/16 Aspirin 81 mg PO DAILY 11/23/13 04/02/16 Atorvastatin [Lipitor] 40 mg PO HS 11/23/13 04/02/16 Dicyclomine [Bentyl] 10 mg PO TID PRN 11/23/13 04/02/16 Diphenoxylate HCl/Atropine 1 tab PO QID PRN 11/23/13 04/02/16 [Lomotil] PARoxetine [Paxil] 20 mg PO HS 11/23/13 04/02/16 Terazosin [Hytrin] 2 mg PO HS 11/23/13 04/02/16 Diazepam [Valium] 5 mg PO BID PRN 07/23/14 04/02/16 Acetaminophen [Tylenol] 325 mg PO Q4H PRN 09/03/15 04/02/16 Torsemide 20 mg PO BID 03/19/16 04/02/16 Previous Rx's Medication Instructions Recorded Carvedilol [Coreg*] 25 mg PO BID-W/MEALS #120 tab 03/24/16 Clopidogrel [Plavix] 75 mg PO DAILY #30 tab 03/24/16 Losartan [Cozaar] 50 mg PO DAILY #30 tab 03/24/16 Nitroglycerin Sl Tabs [Nitrostat] 0.4 mg SUBLINGUAL Q5M PRN #25 tab 03/24/16 Allergies Allergy/AdvReac Type Severity Reaction Status Date / Time Penicillins Allergy Unknown Verified 04/02/16 18:30 Childhood Review of Systems ROS Statement: Those systems with pertinent positive or pertinent negative responses have been documented in the HPI. ROS Other: All systems not noted in ROS Statement are negative. Past Medical History Past Medical History: Atrial Fibrillation, Coronary Artery Disease (CAD), Heart Failure, GERD/Reflux, Hyperlipidemia, Hypertension, Myocardial Infarction (DE), Musculoskeletal Disorder, Osteoarthritis (OA) Additional Past Medical History / Comment(s): CAD status post CABG with ischemic cardiomyopathy,gout, IBS History of Any Multi-Drug Resistant Organisms: MRSA Date of last positivie culture/infection: 2010 MDRO Source:: knee infection Past Surgical History: Coronary Bypass/CABG, Heart Catheterization, Heart Catheterization With Stent, Pacemaker Additional Past Surgical History / Comment(s): defibrillator/pacemaker. AAA surg , cataract surg Past Anesthesia/Blood Transfusion Reactions: No Reported Reaction Type of Cardiac Device: Permanent Pacemaker Device Placement Date:: 2012 Past Psychological History: No Psychological Hx Reported Smoking Status: Former smoker Past Alcohol Use History: Rare Past Drug Use History: None Reported - Past Family History Father Family Medical History: Cancer Additional Family Medical History / Comment(s): Brain and larynx Mother Family Medical History: Cancer Additional Family Medical History / Comment(s): Lung Brother(s) Family Medical History: No Reported History General Exam - General Exam Comments Initial Comments: General: The patient is awake and alert, in no distress, and does not appear acutely ill. Neck: The neck is supple, there is no tenderness or JVD. Cardiovascular: There is a regular rate and rhythm. No murmur, rub or gallop is appreciated. Respiratory: Lungs are clear to auscultation, respirations are non-labored, breath sounds are equal. No wheezes, stridor, rales, or rhonchi. Musculoskeletal: There is swelling to the anterior portion of the right shoulder. There is tenderness to palpation along the lateral aspect of the right shoulder into the anterior aspect of the right shoulder. Limited range of motion due to pain, the patient is holding his right upper extremity in extension. Patient is able to move the right upper extremity at the right elbow and wrist joints. Strength 5/5 and Sensation intact. Radial pulses 2+ bilaterally and capillary refill is normal at less than 2 seconds. Neurological: A&O x 3. CN II-XII intact, There are no obvious motor or sensory deficits. Coordination appears grossly intact. Speech is normal. Skin: Skin is warm and dry and no rashes or lesions are noted. Psychiatric: Normal mood and affect. Limitations: no limitations Course Vital Signs 04/02/16 04/02/16 18:26 20:14 Temperature 97.4 F L Pulse Rate 50 L 50 L Respiratory 16 18 Rate Blood Pressure 182/77 197/83 O2 Sat by Pulse 99 100 Oximetry Procedures - Procedures Initial comment: Right shoulder joint was cleansed with betadine and normal saline and then aspirated using an 18gauge needle and 50 mL was drained from the right shoulder joint. Joint aspiration was performed by myself under the direction of Dr. Chou. patient tolerated procedure well and had pain relief after this. Medical Decision Making - Medical Decision Making This is a 80-year-old male presents with right shoulder pain since 3 PM today. Patient states this has happened to him before and occurs every time he is started on Plavix. On physical exam there is swelling to the anterior portion of the right shoulder. There is tenderness to palpation along the lateral aspect of the right shoulder and to the anterior aspect of the right shoulder. Limited range of motion due to pain, the patient is holding his right upper extremity in extension. Strength 5/5 and Sensation intact. Radial pulses 2+ bilaterally and capillary refill is normal at less than [address] Chou was consulted at this time. Right shoulder joint was cleansed with betadine and normal saline and then aspirated using an 18gauge needle and 50 mL was drained from the right shoulder joint. Joint aspiration was performed by myself under the direction of Dr. Chou. Patient had pain relief after joint aspiration. Patient has [place] at home that he can take for pain if needed. Elevated blood pressure noted. Patient states he is due to take his blood pressure medication at home. Patient states he will [facility] for follow up as he has been treated there previously. I discussed this case with attending physician Dr. Harrell who agrees with plan as stated above. Discussed that patient should follow up with PCP in one to 2 days or return to the [facility] for any worsening symptoms or for any further concerns. Patient was receptive to this plan and patient will be discharged home. Disposition Clinical Impression: Hematoma, Blood present in synovial fluid obtained by arthrocentesis Disposition: HOME SELF-CARE Condition: Good Instructions: Hematoma (ED) Additional Instructions: Please continue follow-up with orthopedics tomorrow.Please use medication as discussed. Please follow-up with family doctor in the next 2 days of symptoms have not improved. Please return to emergency room if the symptoms increase or worsen or for any other concerns. Referrals: Ameena Ordonez MD [Primary Care Provider] - 1-2 days Time of Disposition: 20:35
[2016-04-02] MEDS ORDERED: ETHYL CHLORIDE 103.5 ML SPRAY TOPICAL STA (19:51)
[2016-04-02 20:16] VITALS: BP 197/83; RESP 18
--- NOTE | 2016-04-05 23:01 | CONS ---
DATE OF CONSULTATION: 04/02/2016 REASON FOR CONSULTATION: Right shoulder pain and swelling. HISTORY OF PRESENT ILLNESS: The patient is a 80-year-old male who comes into the emergency department with acute right shoulder pain and swelling. The patient is an established patient of my group and has seen both Dr. Devlin and Dr. Anne in the past. He was most recently seeing Dr. Devlin for shoulder pain and swelling. The patient has been diagnosed with a rotator cuff tear and arthritis. In the past he has had several aspirations done of his shoulder, which has provided relief. The patient is on blood thinners and recently had a heart attack. Earlier this evening the patient called the answering service complaining of pain and swelling in the shoulder. I spoke with him over the phone and instructed that he could either show up tomorrow in the office to have his shoulder evaluated aspirated or he could come to the emergency department. The patient decided to come to the emergency department. At the time of my evaluation, the patient is complaining of pain and swelling in his right shoulder. It is similar in nature to his prior shoulder effusions that have been aspirated by Dr. Devlin and Dr. Anne. He is requesting that I aspirate his shoulder. He has no other complaints and denies any injuries. Past medical history, past surgical history, medications, allergies, social history and family history reviewed with the patient and are consistent with the emergency department history. Review of systems is negative except as mentioned in history of present illness. PHYSICAL EXAMINATION: On exam the patient is in no apparent distress and is alert and oriented. His head is normocephalic and atraumatic. He has no tenderness down his cervical spine. He demonstrates nonlabored breathing with symmetric chest expansion. His abdomen is nonobese. He has palpable peripheral pulses. On inspection of the skin, overlying the right shoulder there is moderate swelling, but no overlying erythema or skin lesions. He has a large shoulder effusion on the right. He has pain with passive range of motion of the shoulder. He has a soft arm and forearm. Sensation is intact to light touch throughout his right arm. He has motor intact in his right arm. ASSESSMENT: The patient is a 80-year-old male with an acute shoulder hemarthrosis and pre-existing rotator cuff tear and underlying glenohumeral arthritis. PLAN: I discussed treatment with Mr. Tamia santiago in the emergency department. The patient clinically has signs of a hemarthrosis with no concern for infection. The patient states that this feels similar in nature to his prior shoulder hemarthroses, which had been aspirated with great relief. He requested that I perform an aspiration in the emergency department. The patient had a shoulder aspirated in the ER and 60 mL of bloody fluid was drawn off. Immediately following aspiration of the shoulder the patient had significant improvement in his symptoms. The patient was instructed to contact the office and follow up as an outpatient with Dr. Devlin for ongoing management of his shoulder arthritis and rotator cuff tear. PROCEDURE: Verbal consent for a right shoulder aspiration was obtained from the patient. The lateral aspect of the shoulder just distal to the acromion was prepped first with alcohol then Betadine. Using sterile technique, an 18-gauge needle was inserted into the shoulder joint just under the lateral margin of the acromion. Next, 60 mL of blood-tinged fluid was aspirated. Once no more fluid was able to be aspirated, the needle was withdrawn and a Band-Aid was applied. The patient tolerated this well and after aspiration of 60 mL of bloody fluid, the patient had a significant improvement in his shoulder pain.
== END 2016-04-02 20:43 | disposition home or self-care (01) ==
LOC: EC 18:05
DX: M25.511 Pain in right shoulder (principal); R89.6 Abnormal cytological findings in specimens from other organs, systems and tissues; Z79.02 Long term (current) use of antithrombotics/antiplatelets; I10 Essential (primary) hypertension; I48.91 Unspecified atrial fibrillation; I25.10 Atherosclerotic heart disease of native coronary artery without angina pectoris; M19.90 Unspecified osteoarthritis, unspecified site; E78.5 Hyperlipidemia, unspecified; K58.9 Irritable bowel syndrome, unspecified; M10.9 Gout, unspecified; Z96.89 Presence of other specified functional implants; I25.2 Old myocardial infarction; Z95.1 Presence of aortocoronary bypass graft; Z95.5 Presence of coronary angioplasty implant and graft; Z88.0 Allergy status to penicillin; Z79.899 Other long term (current) drug therapy; Z79.82 Long term (current) use of aspirin; Z87.891 Personal history of nicotine dependence
CPT/HCPCS: 20610; 99283

== ENCOUNTER 2016-05-16 17:01 | Emergency (ER) | payer MEDICARE ==
--- NOTE | 2016-05-16 17:56 | ED ---
General Adult HPI - General Chief complaint: Recheck/Abnormal Lab/Rx Stated complaint: Blood Pressure Time Seen by Provider: 05/16/16 17:37 Source: patient, RN notes reviewed Mode of arrival: ambulatory Limitations: no limitations, language barrier - History of Present Illness Initial comments: Patient is a 80-year-old male who presents emergency room today with an elevated blood pressure. He does admit that he's notices blood pressure seems to be running high over the last few days. States he did talk to the tailer out who advised him to double up on his losartan if it was elevated above 150. States it was elevated above 150 this morning to take 2 of losartan. States it did come down was 138 over the 90s. States that it was better for a few hours and then has shot back up greater than 200. Patient is also on Coreg that he filled in the morning also takes another pill possibly around dinnertime. he does admit to feeling "unsteady". Patient denies any other complaints or symptoms. Patient denies any recent fever, chills, shortness of breath, chest pain, back pain, abdominal pain, nausea or vomiting, numbness or tingling, dysuria or hematuria, constipation or diarrhea, headaches or visual changes, or any other complaints. - Related Data Home Medications Medication Instructions Recorded Confirmed Allopurinol [Zyloprim] 300 mg PO QAM 11/23/13 05/16/16 Aspirin 81 mg PO DAILY 11/23/13 05/16/16 Atorvastatin [Lipitor] 40 mg PO HS 11/23/13 05/16/16 Dicyclomine [Bentyl] 10 mg PO TID PRN 11/23/13 05/16/16 Diphenoxylate HCl/Atropine 1 tab PO QID PRN 11/23/13 05/16/16 [Lomotil] PARoxetine [Paxil] 20 mg PO HS 11/23/13 05/16/16 Terazosin [Hytrin] 2 mg PO HS 11/23/13 05/16/16 Diazepam [Valium] 5 mg PO BID PRN 07/23/14 05/16/16 Acetaminophen [Tylenol] 325 mg PO Q4H PRN 09/03/15 05/16/16 Torsemide 20 mg PO BID 03/19/16 05/16/16 Losartan [Cozaar] 50 - 100 mg PO DAILY 05/16/16 05/16/16 Previous Rx's Medication Instructions Recorded Carvedilol [Coreg*] 25 mg PO BID-W/MEALS #120 tab 03/24/16 Clopidogrel [Plavix] 75 mg PO DAILY #30 tab 03/24/16 Nitroglycerin Sl Tabs [Nitrostat] 0.4 mg SUBLINGUAL Q5M PRN #25 tab 03/24/16 Allergies Allergy/AdvReac Type Severity Reaction Status Date / Time Penicillins Allergy Unknown Verified 05/16/16 17:32 Childhood Review of Systems ROS Statement: Those systems with pertinent positive or pertinent negative responses have been documented in the HPI. ROS Other: All systems not noted in ROS Statement are negative. Past Medical History Past Medical History: Atrial Fibrillation, Coronary Artery Disease (CAD), Heart Failure, GERD/Reflux, Hyperlipidemia, Hypertension, Myocardial Infarction (AR), Musculoskeletal Disorder, Osteoarthritis (OA) Additional Past Medical History / Comment(s): CAD status post CABG with ischemic cardiomyopathy,gout, IBS History of Any Multi-Drug Resistant Organisms: MRSA Date of last positivie culture/infection: 2010 MDRO Source:: knee infection Past Surgical History: Coronary Bypass/CABG, Heart Catheterization, Heart Catheterization With Stent, Pacemaker Additional Past Surgical History / Comment(s): defibrillator/pacemaker. AAA surg , cataract surg Past Anesthesia/Blood Transfusion Reactions: No Reported Reaction Type of Cardiac Device: Permanent Pacemaker Device Placement Date:: 2012 Past Psychological History: No Psychological Hx Reported Smoking Status: Former smoker Past Alcohol Use History: Rare Past Drug Use History: None Reported - Past Family History Father Family Medical History: Cancer Additional Family Medical History / Comment(s): Brain and larynx Mother Family Medical History: Cancer Additional Family Medical History / Comment(s): Lung Brother(s) Family Medical History: No Reported History General Exam - General Exam Comments Initial Comments: General: The patient is awake and alert, in no distress, and does not appear acutely ill. Eye: Pupils are equal, round and reactive to light, extra-ocular movements are intact. No nystagmus. There is normal conjunctiva bilaterally. No signs of icterus. Ears, nose, mouth and throat: There are moist mucous membranes and no oral lesions. Neck: The neck is supple, there is no tenderness or JVD. Cardiovascular: There is a regular rate and rhythm. No murmur, rub or gallop is appreciated. Respiratory: Lungs are clear to auscultation, respirations are non-labored, breath sounds are equal. No wheezes, stridor, rales, or rhonchi. Gastrointestinal: Soft, non-distended, non-tender abdomen without masses or organomegaly noted. There is no rebound or guarding present. No CVA tenderness. Bowel sounds are unremarkable. Musculoskeletal: Normal ROM, no tenderness. Strength 5/5. Sensation intact. Pulses equal bilaterally 2+. Neurological: A&O x 3. CN II-XII intact, There are no obvious motor or sensory deficits. Coordination appears grossly intact. Speech is normal. Skin: Skin is warm and dry and no rashes or lesions are noted. Psychiatric: Cooperative, appropriate mood & affect, normal judgment. Limitations: no limitations, language barrier Course Vital Signs 05/16/16 05/16/16 17:20 19:20 Temperature 97.5 F L 97.9 F Pulse Rate 53 L 50 L Respiratory 18 16 Rate Blood Pressure 211/90 194/75 O2 Sat by Pulse 100 100 Oximetry EKG Findings - EKG Comments: EKG Findings:: EKG performed at 1800: Shows an electronically paced rhythm at 50 bpm. QRS 164. QT/QTC 554/505. No acute ST changes. Medical Decision Making - Medical Decision Making Case discussed in detail with attending physician Dr. Harrell. Patient reexamined at this time shows no signs of distress. Patient's labs been reviewed and negative cardiac enzymes. Patient feeling better here in emergency room. Briefly blood pressure 116/68. Patient advised to continue with losartan as discussed by his tailer out. Double the dose. Advised to follow-up the tailer out family doctor over the next 2 days. Advised return to emergency room if any symptoms increase worsen or for any other concerns. - Lab Data Result diagrams: 05/16/16 18:00 05/16/16 18:00 Lab Results 05/16/16 05/16/16 05/16/16 Range/Units 18:00 18:00 18:10 WBC 4.1 (3.8-10.6) k/uL RBC 3.59 L (4.30-5.90) m/uL Hgb 11.5 L (13.0-17.5) gm/dL Hct 35.6 L (39.0-53.0) % MCV 99.1 (80.0-100.0) fL MCH 32.1 (25.0-35.0) pg MCHC 32.4 (31.0-37.0) g/dL RDW 15.4 (11.5-15.5) % Plt Count 116 L (150-450) k/uL Neutrophils % 73 % Lymphocytes % 13 % Monocytes % 6 % Eosinophils % 5 % Basophils % 1 % Neutrophils # 3.0 (1.3-7.7) k/uL Lymphocytes # 0.5 L (1.0-4.8) k/uL Monocytes # 0.2 (0-1.0) k/uL Eosinophils # 0.2 (0-0.7) k/uL Basophils # 0.0 (0-0.2) k/uL Hypochromasia Slight Macrocytosis Slight Sodium 145 (137-145) mmol/L Potassium 3.9 (3.5-5.1) mmol/L Chloride 102 (98-107) mmol/L Carbon Dioxide 33 H (22-30) mmol/L Anion Gap 10 mmol/L BUN 27 H (9-20) mg/dL Creatinine 1.18 (0.66-1.25) mg/dL Est GFR (MDRD) Af Amer >60 (>60 ml/min/1.73 sqM) Est GFR (MDRD) Non-Af 60 (>60 ml/min/1.73 sqM) Glucose 92 (74-99) mg/dL Calcium 9.3 (8.4-10.2) mg/dL Total Bilirubin 0.9 (0.2-1.3) mg/dL AST 19 (17-59) U/L ALT 28 (21-72) U/L Alkaline Phosphatase 99 (38-126) U/L Total Creatine Kinase 74 (55-170) U/L CK-MB (CK-2) 1.3 (0.0-2.4) ng/mL CK-MB (CK-2) Rel Index 1.8 Troponin I 0.018 (0.000-0.034) ng/mL Total Protein 6.8 (6.3-8.2) g/dL Albumin 4.2 (3.5-5.0) g/dL Disposition Clinical Impression: Hypertension Disposition: HOME SELF-CARE Condition: Good Instructions: Hypertension (ED) Additional Instructions: Please take second dose of losartan 50 mg if blood pressure is greater than 160/ 95. Please follow-up the family doctor and tailer out in the next 2 days as discussed. Please return to emergency room if any symptoms increase or worsen or for any other concerns. Time of Disposition: 19:50
[2016-05-16 18:24] LABS: Basophils % (A) 1 %; CHCM 32.6; Eosinophils # (A) 0.2 k/uL (0-0.7); Eosinophils % (A) 5 %; HCT 35.6 % (39.0-53.0); HDW 3.21; HGB 11.5 gm/dL (13.0-17.5); Hypochromasia Slight; Luc # (Auto) 0.11; Luc % (Auto) 3; Lymphocytes # (A) 0.5 k/uL (1.0-4.8); Lymphocytes % (A) 13 %; MCH 32.1 pg (25.0-35.0); MCHC 32.4 g/dL (31.0-37.0); MCV 99.1 fL (80.0-100.0); Macrocytosis Slight; Mean Platelet Volume 7.4; Monocytes # (A) 0.2 k/uL (0-1.0); Monocytes % (A) 6 %; Neutrophils % (A) 73 %; RBC 3.59 m/uL (4.30-5.90); RDW 15.4 % (11.5-15.5); WBC 4.1 k/uL (3.8-10.6); WBC (Perox) 4.31
[2016-05-16 18:27] LABS: ALT 28 U/L (21-72); AST 19 U/L (17-59); Alkaline Phosphatase 99 U/L (38-126); Anion Gap 10 mmol/L; Blood Urea Nitrogen 27 mg/dL (9-20); Calcium 9.3 mg/dL (8.4-10.2); Carbon Dioxide 33 mmol/L (22-30); Chloride 102 mmol/L (98-107); Glucose 92 mg/dL (74-99); Non-African American GFR(MDRD) 60 (>60 ml/min/1.73 sqM); Potassium 3.9 mmol/L (3.5-5.1); Sodium 145 mmol/L (137-145); Total Bilirubin 0.9 mg/dL (0.2-1.3); Total Protein 6.8 g/dL (6.3-8.2)
[2016-05-16 18:59] LABS: Creatine Kinase MB 1.3 ng/mL (0.0-2.4); Troponin I 0.018 ng/mL (0.000-0.034)
[2016-05-16] MEDS ORDERED: hydrALAZINE HCL 20 MG/ML 1 ML VIAL IVP STA (19:11)
--- NOTE | 2016-05-16 19:22 | XR ---
EXAMINATION TYPE: XR chest 2V DATE OF EXAM: 05/16/2016 6:36 PM COMPARISON: 03/19/2016 INDICATION: Unstable blood pressure TECHNIQUE: Frontal and lateral views of the chest are obtained. FINDINGS: The heart size is normal. The pulmonary vasculature is normal. The lungs are clear. Pacemaker overlies left chest. EKG of September the chest. IMPRESSION: 1. No acute pulmonary process.
[2016-05-16 20:19] VITALS: BP 170/73; PULSE 52; RESP 20; TEMP 97
== END 2016-05-16 20:19 | disposition home or self-care (01) ==
LOC: EC 17:01
DX: I10 Essential (primary) hypertension (principal); I48.91 Unspecified atrial fibrillation; I25.10 Atherosclerotic heart disease of native coronary artery without angina pectoris; I50.9 Heart failure, unspecified; K21.9 Gastro-esophageal reflux disease without esophagitis; E78.5 Hyperlipidemia, unspecified; I25.2 Old myocardial infarction; M19.90 Unspecified osteoarthritis, unspecified site; K58.9 Irritable bowel syndrome, unspecified; M10.9 Gout, unspecified; Z87.891 Personal history of nicotine dependence; Z79.82 Long term (current) use of aspirin; Z79.899 Other long term (current) drug therapy; Z88.0 Allergy status to penicillin
CPT/HCPCS: 36415; 93005; 80053; 82550; 82553; 84484; 85025; 71020; 99284; 96374; J0360

== ENCOUNTER → 2016-06-16 | Outpatient (CLI) | payer MEDICARE ==
[2016-06-16 09:52] LABS: Basophils % (A) 1 %; CH 31.9; CHCM 31.4; Eosinophils # (A) 0.2 k/uL (0-0.7); Eosinophils % (A) 5 %; HCT 34.5 % (39.0-53.0); HGB 10.9 gm/dL (13.0-17.5); Hypochromasia Slight; Luc # (Auto) 0.09; Luc % (Auto) 2; Lymphocytes # (A) 0.5 k/uL (1.0-4.8); Lymphocytes % (A) 10 %; MCH 32.3 pg (25.0-35.0); MCHC 31.7 g/dL (31.0-37.0); MCV 102.2 fL (80.0-100.0); Macrocytosis Slight; Mean Platelet Volume 8.5; Monocytes # (A) 0.2 k/uL (0-1.0); Monocytes % (A) 5 %; Neutrophils # (A) 3.4 k/uL (1.3-7.7); Neutrophils % (A) 77 %; RBC 3.37 m/uL (4.30-5.90); RDW 15.6 % (11.5-15.5); WBC 4.4 k/uL (3.8-10.6); WBC (Perox) 4.95
[2016-06-16 12:13] LABS: Hemoglobin A1C 5.6 % (4.2-6.1)
[2016-06-16 13:44] LABS: Calcium 9.2 mg/dL (8.4-10.2); Potassium 4.2 mmol/L (3.5-5.1); Total Bilirubin 0.6 mg/dL (0.2-1.3); Total Protein 6.3 g/dL (6.3-8.2); Uric Acid 4.3 mg/dL (3.5-8.5)
[2016-06-16 13:58] LABS: % Iron Saturation 18.3 % (20-50)
== END ==
LOC: LABWHC1 09:13
PROVIDERS: ATTEND Internal Medicine
DX: I25.810 Atherosclerosis of coronary artery bypass graft(s) without angina pectoris (principal); D64.9 Anemia, unspecified; E78.00 Pure hypercholesterolemia, unspecified; M10.9 Gout, unspecified
CPT/HCPCS: 36415; 80053; 80061; 82306; 82550; 82728; 83036; 83540; 83550; 84439; 84443; 84550; 85025

== ENCOUNTER 2016-07-02 17:30 | Emergency (ER) | payer MEDICARE ==
[2016-07-02 18:52] VITALS: BP 174/81; RESP 18; TEMP 97.8
--- NOTE | 2016-07-02 19:09 | ED ---
General Adult HPI - General Chief complaint: Allergic Reaction Stated complaint: POSS MED REACTION, FACIAL NUMBNESS/SWELLING Time Seen by Provider: 07/02/16 18:37 Source: patient, RN notes reviewed, old records reviewed Mode of arrival: ambulatory Limitations: no limitations - History of Present Illness Initial comments: This is an 81-year-old male to the ER for evaluation. This patient presents for evaluation of present epilepsy is today with steroids for treatment of sore throat. Patient states his has no sore throat but Blasius was slowing to his anterior face - Related Data Home Medications Medication Instructions Recorded Confirmed Allopurinol [Zyloprim] 300 mg PO QAM 11/23/13 07/02/16 Aspirin 81 mg PO DAILY 11/23/13 07/02/16 Atorvastatin [Lipitor] 40 mg PO HS 11/23/13 07/02/16 Dicyclomine [Bentyl] 10 mg PO TID PRN 11/23/13 07/02/16 Diphenoxylate HCl/Atropine 1 tab PO QID PRN 11/23/13 07/02/16 [Lomotil] PARoxetine [Paxil] 20 mg PO HS 11/23/13 07/02/16 Terazosin [Hytrin] 2 mg PO HS 11/23/13 07/02/16 Diazepam [Valium] 5 mg PO BID PRN 07/23/14 07/02/16 Acetaminophen [Tylenol] 325 mg PO Q4H PRN 09/03/15 07/02/16 Torsemide 20 mg PO BID 03/19/16 07/02/16 Losartan [Cozaar] 50 - 100 mg PO DAILY 05/16/16 07/02/16 Azithromycin [Zithromax Z-pack] See Taper PO DAILY 07/02/16 07/02/16 HYDROcodone/APAP 7.5-325MG [[place] 1 tab PO Q4-6H PRN 07/02/16 07/02/16 7.5-325] Triamcinolone 0.1% Cream [Kenalog] 1 applic TOPICAL BID 07/02/16 07/02/16 hydrALAZINE HCL [Apresoline] 25 mg PO TID 07/02/16 07/02/16 methylPREDNISolone [Medrol Dose See Taper PO DAILY 07/02/16 07/02/16 Pack] Previous Rx's Medication Instructions Recorded Carvedilol [Coreg*] 25 mg PO BID-W/MEALS #120 tab 03/24/16 Clopidogrel [Plavix] 75 mg PO DAILY #30 tab 03/24/16 Nitroglycerin Sl Tabs [Nitrostat] 0.4 mg SUBLINGUAL Q5M PRN #25 tab 03/24/16 Allergies Allergy/AdvReac Type Severity Reaction Status Date / Time Penicillins Allergy Unknown Verified 07/02/16 19:09 Childhood Review of Systems ROS Statement: Those systems with pertinent positive or pertinent negative responses have been documented in the HPI. ROS Other: All systems not noted in ROS Statement are negative. Past Medical History Past Medical History: Atrial Fibrillation, Coronary Artery Disease (CAD), Heart Failure, GERD/Reflux, Hyperlipidemia, Hypertension, Myocardial Infarction ([place]), Musculoskeletal Disorder, Osteoarthritis (OA) Additional Past Medical History / Comment(s): CAD status post CABG with ischemic cardiomyopathy,gout, IBS History of Any Multi-Drug Resistant Organisms: MRSA Date of last positivie culture/infection: 2010 MDRO Source:: knee infection Past Surgical History: Coronary Bypass/CABG, Heart Catheterization, Heart Catheterization With Stent, Pacemaker Additional Past Surgical History / Comment(s): defibrillator/pacemaker. AAA surg , cataract surg Past Anesthesia/Blood Transfusion Reactions: No Reported Reaction Type of Cardiac Device: Permanent Pacemaker Device Placement Date:: 2012 Past Psychological History: No Psychological Hx Reported Smoking Status: Former smoker Past Alcohol Use History: Rare Past Drug Use History: None Reported - Past Family History Father Family Medical History: Cancer Additional Family Medical History / Comment(s): Brain and larynx Mother Family Medical History: Cancer Additional Family Medical History / Comment(s): Lung Brother(s) Family Medical History: No Reported History General Exam Limitations: no limitations General appearance: alert, in no apparent distress Head exam: Present: atraumatic, normocephalic, normal inspection Eye exam: Present: normal appearance, PERRL, EOMI. Absent: scleral icterus, conjunctival injection, periorbital swelling ENT exam: Present: normal exam, mucous membranes moist Neck exam: Present: normal inspection. Absent: tenderness, meningismus, lymphadenopathy Respiratory exam: Present: normal lung sounds bilaterally. Absent: respiratory distress, wheezes, rales, rhonchi, stridor Cardiovascular Exam: Present: regular rate, normal rhythm, normal heart sounds. Absent: systolic murmur, diastolic murmur, rubs, gallop, clicks GI/Abdominal exam: Present: soft, normal bowel sounds. Absent: distended, tenderness, guarding, rebound, rigid Extremities exam: Present: normal inspection, full ROM, normal capillary refill. Absent: tenderness, pedal edema, joint swelling, calf tenderness Back exam: Present: normal inspection Neurological exam: Present: alert, oriented X3, CN II-XII intact Psychiatric exam: Present: normal affect, normal mood Skin exam: Present: warm, dry, intact, normal color. Absent: rash Course Vital Signs 07/02/16 07/02/16 07/02/16 17:40 18:46 19:17 Temperature 98 F 97.8 F Pulse Rate 67 59 L 61 Respiratory 16 18 18 Rate Blood Pressure 166/75 174/81 174/81 O2 Sat by Pulse 96 98 100 Oximetry - Reevaluation(s) Reevaluation #1: Patient denies shortness of breath States swelling is Is much improved at this time. Medical Decision Making - Medical Decision Making 81 male to the ER with adverse reaction to drug, no shortness of breath no stridor no significant swelling. There is coming on exam, no evidence of strep throat patient. Antibiotics and discharged home Disposition Clinical Impression: Adverse reaction to drug Disposition: HOME SELF-CARE Condition: Good Instructions: Anaphylaxis (ED) Referrals: Ameena Ordonez MD [Primary Care Provider] - 1-2 days
[2016-07-02 19:17] VITALS: PULSE 61
== END 2016-07-02 19:17 | disposition home or self-care (01) ==
LOC: EC 17:30
DX: R20.0 Anesthesia of skin (principal); R22.0 Localized swelling, mass and lump, head; T50.905A Adverse effect of unspecified drugs, medicaments and biological substances, initial encounter; I25.10 Atherosclerotic heart disease of native coronary artery without angina pectoris; K21.9 Gastro-esophageal reflux disease without esophagitis; I50.9 Heart failure, unspecified; E78.5 Hyperlipidemia, unspecified; I10 Essential (primary) hypertension; M19.90 Unspecified osteoarthritis, unspecified site; I25.2 Old myocardial infarction; I48.91 Unspecified atrial fibrillation; Z79.82 Long term (current) use of aspirin; Z87.891 Personal history of nicotine dependence; Z79.899 Other long term (current) drug therapy; Z88.0 Allergy status to penicillin; Z95.5 Presence of coronary angioplasty implant and graft
CPT/HCPCS: 99283

== ENCOUNTER → 2016-07-03 | Outpatient (CLI) | payer MEDICARE ==
[2016-07-03 12:32] LABS: Basophils % (A) 0 %; CH 31.7; CHCM 31.6; Eosinophils % (A) 0 %; HCT 33.7 % (39.0-53.0); HDW 2.84; HGB 10.7 gm/dL (13.0-17.5); Hypochromasia Slight; Luc # (Auto) 0.13; Luc % (Auto) 2; Lymphocytes # (A) 0.6 k/uL (1.0-4.8); Lymphocytes % (A) 7 %; MCH 32.1 pg (25.0-35.0); MCHC 31.8 g/dL (31.0-37.0); MCV 100.8 fL (80.0-100.0); Macrocytosis Slight; Mean Platelet Volume 8.4; Monocytes # (A) 0.4 k/uL (0-1.0); Monocytes % (A) 5 %; Neutrophils # (A) 7.1 k/uL (1.3-7.7); Neutrophils % (A) 86 %; RBC 3.34 m/uL (4.30-5.90); RDW 15.3 % (11.5-15.5); WBC 8.3 k/uL (3.8-10.6); WBC (Perox) 8.25
[2016-07-03 12:45] LABS: Reticulocyte % 1.8 % (0.5-2.0)
[2016-07-03 12:58] LABS: % Iron Saturation 18.2 % (20-50)
[2016-07-03 15:18] LABS: Erythrocyte Sedimentation Rate 3 mm/hr (0-15)
== END | disposition home or self-care (01) ==
LOC: LABWHC1 12:08
PROVIDERS: ATTEND Internal Medicine
DX: D69.6 Thrombocytopenia, unspecified (principal)
CPT/HCPCS: 36415; 82607; 82728; 82746; 83540; 83550; 83615; 85025; 85045; 85652

== ENCOUNTER → 2016-12-25 | Outpatient (CLI) | payer MEDICARE ==
[2016-12-25 13:19] LABS: Basophils % (A) 1 %; CH 32.5; CHCM 31.4; Eosinophils # (A) 0.2 k/uL (0-0.7); Eosinophils % (A) 5 %; HDW 2.95; HGB 10.5 gm/dL (13.0-17.5); Hypochromasia Slight; Luc # (Auto) 0.06; Luc % (Auto) 2; Lymphocytes # (A) 0.6 k/uL (1.0-4.8); Lymphocytes % (A) 14 %; MCH 31.3 pg (25.0-35.0); MCV 104.3 fL (80.0-100.0); Macrocytosis Moderate; Monocytes # (A) 0.2 k/uL (0-1.0); Monocytes % (A) 6 %; Neutrophils % (A) 72 %; RBC 3.36 m/uL (4.30-5.90); RDW 15.9 % (11.5-15.5); WBC 4.1 k/uL (3.8-10.6)
[2016-12-25 13:29] LABS: Appearance,Urine Clear (Clear); Bilirubin,Urine Negative (Negative); Glucose,Urine (UA) Negative (Negative); Ketones,Urine Negative (Negative); Leukocyte Esterase,Urine Negative (Negative); Nitrite,Urine Negative (Negative); PH, Urine 5.5 (5.0-8.0); Protein,Urine Trace (Negative); Specific Gravity,Urine 1.009 (1.001-1.035); UA Billing (MACRO vs. MICRO) CHEM; Urobilinogen,Urine <2.0 mg/dL (<2.0)
[2016-12-25 14:33] LABS: Calcium 9.5 mg/dL (8.4-10.2); Potassium 4.6 mmol/L (3.5-5.1); Total Bilirubin 0.7 mg/dL (0.2-1.3); Total Protein 6.2 g/dL (6.3-8.2); Uric Acid 4.4 mg/dL (3.5-8.5)
[2016-12-25 15:02] LABS: Prostate Specific Antigen 0.23 ng/mL (0.00-4.00)
[2016-12-25 23:15] LABS: Hemoglobin A1C 5.4 % (4.2-6.1)
== END | disposition home or self-care (01) ==
LOC: LABWHC1 12:51
PROVIDERS: ATTEND Internal Medicine
DX: E78.00 Pure hypercholesterolemia, unspecified (principal); I10 Essential (primary) hypertension; I25.810 Atherosclerosis of coronary artery bypass graft(s) without angina pectoris; M10.9 Gout, unspecified; N40.0 Benign prostatic hyperplasia without lower urinary tract symptoms
CPT/HCPCS: 36415; 80053; 80061; 81003; 82306; 82550; 83036; 84153; 84439; 84443; 84550; 85025

== ENCOUNTER → 2017-04-15 | Outpatient (CLI) | payer MEDICARE ==
--- NOTE | 2017-04-15 12:22 | CT ---
EXAMINATION TYPE: CT cervical spine wo con DATE OF EXAM: 04/15/2017 COMPARISON: NONE HISTORY: 81-year-old male neck pain for 6+ months TECHNIQUE: Contiguous axial scanning of the cervical spine without IV contrast. Coronal and sagittal reconstructions performed. CT DLP: 326.1 mGycm Automated exposure control for dose reduction was used. FINDINGS: Left carotid stent is present. There is biapical pleural parenchymal scarring with underlying centril obular emphysema. No craniocervical junction abnormality, predental space widening, or prevertebral soft tissue swellin g. There is degenerative change at the C1 dens articulation. Multilevel advanced facet and uncovertebral joint arthropathy is present. Grade 1 retrolisthesis at C 5-C6 and grade 1 anterolisthesis at C6-C7. Degenerative disc disease is severe at C5-C6 and C7-T1 with a bone on bone articulation, endplate irr egularity, sclerosis, and discussed by complex formation. The changes seem to mildly narrow the spina l canal at both of these levels. No bentley canal compromise identified though assessment of the spinal canal below C6 is limited due to artifact from the patient's shoulders. No acute fracture of the cervical spine. At C4-C5, changes result in mild left greater than right neuroforaminal stenosis. At C5-C6, resulting in moderate to severe left and moderate right neuroforaminal stenosis. IMPRESSION: 1. ADVANCED DISC/ENDPLATE DEGENERATIVE CHANGE PARTICULARLY IN THE MID TO LOWER CERVICAL SPINE. 2. GRADE 1 SPONDYLOLISTHESES AT C5-C6 AND C6/C7. 3. MILD NARROWING OF THE SPINAL CANAL AT C5-C6 AND C7-T1. 4. VARIABLE NEUROFORAMINAL NARROWING AT C4-C5 AND C5-C6, MODERATE TO SEVERE ON THE LEFT at C5-C6. 5. COPD. LEFT CAROTID STENT.
== END | disposition home or self-care (01) ==
LOC: RADCTMAIN 11:47
PROVIDERS: ATTEND Physical Medicine & Rehabilitation
DX: M48.02 Spinal stenosis, cervical region (principal); M99.71 Connective tissue and disc stenosis of intervertebral foramina of cervical region; M43.12 Spondylolisthesis, cervical region; M47.812 Spondylosis without myelopathy or radiculopathy, cervical region
CPT/HCPCS: 72125

== ENCOUNTER 2017-04-30 19:47 | Emergency (ER) | payer MEDICARE ==
[2017-04-30] MEDS ORDERED: MECLIZINE 12.5 MG TAB PO STA (20:12)
[2017-04-30] MEDS ORDERED: SODIUM CHLORIDE 0.9% 500 ML IV STA ×2 (20:12→21:37)
[2017-04-30] MEDS ORDERED: RX INFO: IV CONTRAST WAS GIVEN 1 EACH MISC MISCELLANE PRN (20:14)
--- NOTE | 2017-04-30 20:16 | ED ---
Dizziness HPI - General Chief Complaint: Dizziness Stated Complaint: Dizziness Time Seen by Provider: 04/30/17 20:00 Source: patient, RN notes reviewed Mode of arrival: wheelchair Limitations: no limitations - History of Present Illness Initial Comments: This 81-year-old male history of pacemaker defibrillator also history of CO in the past who is awaiting rotator cuff surgery on his right shoulder who normally is on blood thinners but now only on Plavix who presents with complaints of feeling off balance today. He's had some difficulty with walking and feels like he is drunk at times he got up today and stood up and felt dizzy and didn't resolve as quickly as it normally does. Additionally he states he has some left facial numbness of note however he had he had cervical injections on the of this month and so has some residual ecchymosis on his neck more so on the right than the left than he expected. He denies any fevers chills sweats focal weakness blurry vision nausea vomiting no overt headache. No overt neck pain. MD Complaint: dizziness - Related Data Home Medications Medication Instructions Recorded Confirmed Allopurinol [Zyloprim] 300 mg PO QAM 11/23/13 04/30/17 Aspirin 81 mg PO DAILY 11/23/13 04/30/17 Atorvastatin [Lipitor] 40 mg PO HS 11/23/13 04/30/17 Dicyclomine [Bentyl] 10 mg PO TID PRN 11/23/13 04/30/17 Diphenoxylate HCl/Atropine 1 - 2 tab PO QID PRN 11/23/13 04/30/17 [Lomotil] PARoxetine [Paxil] 20 mg PO HS 11/23/13 04/30/17 Terazosin [Hytrin] 2 mg PO HS 11/23/13 04/30/17 Diazepam [Valium] 5 mg PO BID PRN 07/23/14 04/30/17 Acetaminophen [Tylenol] 325 mg PO Q4H PRN 09/03/15 04/30/17 Torsemide 20 mg PO BID 03/19/16 04/30/17 Losartan [Cozaar] 100 mg PO DAILY 05/16/16 04/30/17 hydrALAZINE HCL [Apresoline] 25 mg PO TID 07/02/16 04/30/17 Previous Rx's Medication Instructions Recorded Carvedilol [Coreg*] 25 mg PO BID-W/MEALS #120 tab 03/24/16 Clopidogrel [Plavix] 75 mg PO DAILY #30 tab 03/24/16 Nitroglycerin Sl Tabs [Nitrostat] 0.4 mg SUBLINGUAL Q5M PRN #25 tab 03/24/16 Meclizine [Antivert] 25 mg PO TID #20 tab 04/30/17 Allergies Allergy/AdvReac Type Severity Reaction Status Date / Time Penicillins Allergy Unknown Verified 04/30/17 20:33 Childhood Review of Systems ROS Statement: Those systems with pertinent positive or pertinent negative responses have been documented in the HPI. ROS Other: All systems not noted in ROS Statement are negative. Past Medical History Past Medical History: Atrial Fibrillation, Coronary Artery Disease (CAD), Heart Failure, GERD/Reflux, Hyperlipidemia, Hypertension, Myocardial Infarction ([place]), Musculoskeletal Disorder, Osteoarthritis (OA) Additional Past Medical History / Comment(s): CAD status post CABG with ischemic cardiomyopathy,gout, IBS History of Any Multi-Drug Resistant Organisms: MRSA Date of last positivie culture/infection: 2010 MDRO Source:: knee infection Past Surgical History: Coronary Bypass/CABG, Heart Catheterization, Heart Catheterization With Stent, Pacemaker Additional Past Surgical History / Comment(s): defibrillator/pacemaker. AAA surg , cataract surg Past Anesthesia/Blood Transfusion Reactions: No Reported Reaction Type of Cardiac Device: Permanent Pacemaker Device Placement Date:: 2012 Past Psychological History: No Psychological Hx Reported Smoking Status: Former smoker Past Alcohol Use History: Rare Past Drug Use History: None Reported - Past Family History Father Family Medical History: Cancer Additional Family Medical History / Comment(s): Brain and larynx Mother Family Medical History: Cancer Additional Family Medical History / Comment(s): Lung Brother(s) Family Medical History: No Reported History General Exam - General Exam Comments Initial Comments: This is a well-developed molars awake alert oriented 3 male Limitations: no limitations General appearance: alert, in no apparent distress Head exam: Present: atraumatic, normocephalic, normal inspection Eye exam: Present: normal appearance, PERRL, EOMI. Absent: scleral icterus, conjunctival injection, periorbital swelling ENT exam: Present: normal exam, mucous membranes moist Neck exam: Present: normal inspection. Absent: tenderness, meningismus, lymphadenopathy Respiratory exam: Present: normal lung sounds bilaterally. Absent: respiratory distress, wheezes, rales, rhonchi, stridor Cardiovascular Exam: Present: regular rate, normal rhythm, normal heart sounds. Absent: systolic murmur, diastolic murmur, rubs, gallop, clicks GI/Abdominal exam: Present: soft, normal bowel sounds. Absent: distended, tenderness, guarding, rebound, rigid Extremities exam: Present: normal inspection, full ROM, normal capillary refill. Absent: tenderness, pedal edema, joint swelling, calf tenderness Back exam: Present: normal inspection Neurological exam: Present: alert, oriented X3, CN II-XII intact Psychiatric exam: Present: normal affect, normal mood Skin exam: Present: warm, dry, intact, normal color. Absent: rash Course Vital Signs 04/30/17 04/30/17 04/30/17 19:52 20:31 21:41 Temperature 98.3 F Pulse Rate 57 L 53 L 54 L Respiratory 16 18 18 Rate Blood Pressure 208/83 197/77 229/93 O2 Sat by Pulse 97 100 100 Oximetry 04/30/17 04/30/17 04/30/17 22:17 22:42 23:06 Temperature 98 F Pulse Rate 58 L 62 63 Respiratory 18 18 18 Rate Blood Pressure 199/86 200/77 176/77 O2 Sat by Pulse 100 100 100 Oximetry EKG Findings - EKG Results: EKG: interpreted by GIRMA (Atrial sensed ventricular paced rhythm rate was 55 CT interval 160 QRS 158 daily since QTC of 494/72) Medical Decision Making - Medical Decision Making The patient is asymptomatic this time the patient will be discharged I did recommend follow-up with his basilar surgeon at [facility] for evaluation of his carotid arteries and he is agreed to this. He will be discharged he did not take his blood pressure medications tonight he did require oral and IV medication. - Lab Data Result diagrams: 04/30/17 20:20 04/30/17 20:20 Lab Results 04/30/17 04/30/17 04/30/17 Range/Units 20:20 20:20 20:20 WBC 6.4 (3.8-10.6) k/uL RBC 3.36 L (4.30-5.90) m/uL Hgb 10.6 L (13.0-17.5) gm/dL Hct 33.8 L (39.0-53.0) % MCV 100.8 H (80.0-100.0) fL MCH 31.6 (25.0-35.0) pg MCHC 31.3 (31.0-37.0) g/dL RDW 15.2 (11.5-15.5) % Plt Count 93 L (150-450) k/uL Neutrophils % 78 % Lymphocytes % 11 % Monocytes % 7 % Eosinophils % 3 % Basophils % 0 % Neutrophils # 5.0 (1.3-7.7) k/uL Lymphocytes # 0.7 L (1.0-4.8) k/uL Monocytes # 0.4 (0-1.0) k/uL Eosinophils # 0.2 (0-0.7) k/uL Basophils # 0.0 (0-0.2) k/uL Manual Slide Review Performed Hypochromasia Slight Macrocytosis Slight Ovalocytes Present Fragmented RBCs Present PT 10.5 (9.0-12.0) sec INR 1.1 (<1.2) APTT 24.1 (22.0-30.0) sec Sodium 145 (137-145) mmol/L Potassium 4.2 (3.5-5.1) mmol/L Chloride 100 (98-107) mmol/L Carbon Dioxide 33 H (22-30) mmol/L Anion Gap 12 mmol/L BUN 47 H (9-20) mg/dL Creatinine 1.50 H (0.66-1.25) mg/dL Est GFR (MDRD) Af Amer 55 (>60 ml/min/1.73 sqM) Est GFR (MDRD) Non-Af 45 (>60 ml/min/1.73 sqM) Glucose 101 H (74-99) mg/dL Calcium 9.3 (8.4-10.2) mg/dL Magnesium 2.5 H (1.6-2.3) mg/dL Total Bilirubin 0.6 (0.2-1.3) mg/dL AST 15 L (17-59) U/L ALT 22 (21-72) U/L Alkaline Phosphatase 89 (38-126) U/L Total Protein 6.2 L (6.3-8.2) g/dL Albumin 4.0 (3.5-5.0) g/dL - Radiology Data Radiology results: report reviewed (Imaging no acute findings or is evidence of right sided stenosis as he origin of the right subclavian to the aortic arch is a proximally 60% stenosis due to plaque at the origin of the right internal carotid artery. The left carotid internal stent appears pain), image reviewed Disposition Clinical Impression: Vertigo, Accelerated hypertension, Carotid artery disease Disposition: HOME SELF-CARE Condition: Good Instructions: Dizziness (ED), Hypertension (ED) Additional Instructions: Follow-up he or vascular surgeon for evaluation of your right carotid artery Prescriptions: Meclizine [Antivert] 25 mg PO TID #20 tab Referrals: Amenea Ordonez MD [Primary Care Provider] - 1-2 days
[2017-04-30 20:30] LABS: Basophils % (A) 0 %; Eosinophils # (A) 0.2 k/uL (0-0.7); Eosinophils % (A) 3 %; HCT 33.8 % (39.0-53.0); HGB 10.6 gm/dL (13.0-17.5); Hypochromasia Slight; Lymphocytes # (A) 0.7 k/uL (1.0-4.8); Lymphocytes % (A) 11 %; MCH 31.6 pg (25.0-35.0); MCHC 31.3 g/dL (31.0-37.0); MCV 100.8 fL (80.0-100.0); Macrocytosis Slight; Mean Platelet Volume 9.2; Monocytes # (A) 0.4 k/uL (0-1.0); Monocytes % (A) 7 %; Neutrophils % (A) 78 %; RBC 3.36 m/uL (4.30-5.90); RDW 15.2 % (11.5-15.5); WBC 6.4 k/uL (3.8-10.6)
[2017-04-30 20:32] VITALS: RESP 18
[2017-04-30 20:41] LABS: INR 1.1 (<1.2); Partial Thromboplastin Time 24.1 sec (22.0-30.0); Prothrombin Time 10.5 sec (9.0-12.0)
[2017-04-30 20:42] LABS: Calcium 9.3 mg/dL (8.4-10.2); Magnesium 2.5 mg/dL (1.6-2.3); Potassium 4.2 mmol/L (3.5-5.1); Total Bilirubin 0.6 mg/dL (0.2-1.3); Total Protein 6.2 g/dL (6.3-8.2)
[2017-04-30 21:11] LABS: Ovalocytes Present; Platelet Count 93 k/uL (150-450); RBC Fragments Present
[2017-04-30] MEDS ORDERED: hydrALAZINE HCL 20 MG/ML 1 ML VIAL IVP STA ×2 (21:38→22:27)
[2017-04-30] MEDS ORDERED: hydrALAZINE HCL 25 MG TAB PO STA (21:39)
--- NOTE | 2017-04-30 21:45 | CT ---
EXAMINATION TYPE: CT angio head neck DATE OF EXAM: 04/30/2017 HISTORY: Dizziness and vision changes COMPARISON: NONE CT DLP: 240.9 mGycm. Automated Exposure Control for Dose Reduction was Utilized. TECHNIQUE: CTA scan of the neck is performed with IV Contrast, patient injected with 65 mL of Visipa que 320, axial images are obtained, coronal and sagittal reformatted images are reviewed. Three-D rec onstructed images are created on an independent workstation and reviewed. FINDINGS: The vertebral arteries are patent. There is a larger right vertebral artery compared to the left. The re is arterial flow in the vertebrobasilar artery system. There is arterial flow in the anterior midd le and posterior cerebral arteries. There is no mass effect. There is no evidence of aneurysm or neov ascularity. I see no sign of stenosis. There is normal contrast opacification of the venous sinuses. There is normal branching pattern of the great vessels on the aortic arch. The thoracic aorta is athe romatous. There appears to be some stenosis at the origin of the right subclavian artery. This could be up to 5 0%. There is arterial flow in the common internal and external carotid arteries bilaterally. There is a s tent in the proximal left internal carotid artery. There is contrast opacification of the stent. Ther e is plaque formation an estimated stenosis of 60% at the origin of the right internal carotid artery . There is no evidence of dissection. CONCLUSION: Atherosclerotic vascular disease. There is probably 50% stenosis at the origin of the right subclavia n artery near the aortic arch. There is a left internal carotid artery stent that appears patent. There is approximate 60% stenosis due to plaque at the origin of the right internal carotid artery. No arterial abnormality identified in the intracranial arterial circulation.
--- NOTE | 2017-04-30 21:48 | CT ---
EXAMINATION TYPE: CT brain wo con DATE OF EXAM: 04/30/2017 COMPARISON: 11/23/2013 HISTORY: Dizziness and vision changes. CT DLP: 1074.3 mGycm Automated exposure control for dose reduction was used. FINDINGS: There is some cerebral cortical atrophy. There is no mass effect nor midline shift. There is no sign of intracranial hemorrhage. The calvarium is intact. IMPRESSION: CEREBRAL ATROPHY. NO ACUTE INTRACRANIAL ABNORMALITY. NO CHANGE.
[2017-04-30 23:07] VITALS: BP 176/77; PULSE 63; TEMP 98
== END 2017-04-30 23:23 | disposition home or self-care (01) ==
LOC: EC 19:47
DX: I99.8 Other disorder of circulatory system (principal); R42 Dizziness and giddiness; I48.91 Unspecified atrial fibrillation; I25.10 Atherosclerotic heart disease of native coronary artery without angina pectoris; I50.9 Heart failure, unspecified; I11.0 Hypertensive heart disease with heart failure; E78.5 Hyperlipidemia, unspecified; Z86.14 Personal history of Methicillin resistant Staphylococcus aureus infection; Z87.891 Personal history of nicotine dependence; Z79.82 Long term (current) use of aspirin; Z79.899 Other long term (current) drug therapy; Z88.0 Allergy status to penicillin; Z95.818 Presence of other cardiac implants and grafts; Z95.0 Presence of cardiac pacemaker
CPT/HCPCS: 36415; 93005; 80053; 83735; 85025; 85610; 85730; 70496; 70450; 70498; 99284; 96374; 96376; 96361 ×2; J0360; Q9967

== ENCOUNTER 2017-08-06 16:55 | Emergency (ER) | payer MEDICARE ==
--- NOTE | 2017-08-06 17:01 | ED ---
General Adult HPI - General Stated complaint: N & V Time Seen by Provider: 08/06/17 17:00 Source: patient, family, RN notes reviewed, old records reviewed - History of Present Illness Initial comments: 82-year-old male presenting for evaluation of intracranial hemorrhage. Patient was sent by his primary care physician for outpatient CAT scan for worsening headache over the past 2 days. Patient did have a fall approximately one week ago striking the left side of his head. He had been doing well until approximately 2 days ago when he developed worsening headache. He denies any weakness numbness or tingling. Denies any vision changes. Denies nausea vomiting or diarrhea. Denies chest pain or shortness of breath. Patient does have history of CAD and is currently on aspirin and Plavix. - Related Data Home Medications Medication Instructions Recorded Confirmed Allopurinol [Zyloprim] 300 mg PO QAM 11/23/13 04/30/17 Aspirin 81 mg PO DAILY 11/23/13 04/30/17 Atorvastatin [Lipitor] 40 mg PO HS 11/23/13 04/30/17 Dicyclomine [Bentyl] 10 mg PO TID PRN 11/23/13 04/30/17 Diphenoxylate HCl/Atropine 1 - 2 tab PO QID PRN 11/23/13 04/30/17 [Lomotil] PARoxetine [Paxil] 20 mg PO HS 11/23/13 04/30/17 Terazosin [Hytrin] 2 mg PO HS 11/23/13 04/30/17 Diazepam [Valium] 5 mg PO BID PRN 07/23/14 04/30/17 Acetaminophen [Tylenol] 325 mg PO Q4H PRN 09/03/15 04/30/17 Torsemide 20 mg PO BID 03/19/16 04/30/17 Losartan [Cozaar] 100 mg PO DAILY 05/16/16 04/30/17 hydrALAZINE HCL [Apresoline] 25 mg PO TID 07/02/16 04/30/17 Previous Rx's Medication Instructions Recorded Carvedilol [Coreg*] 25 mg PO BID-W/MEALS #120 tab 03/24/16 Clopidogrel [Plavix] 75 mg PO DAILY #30 tab 03/24/16 Nitroglycerin Sl Tabs [Nitrostat] 0.4 mg SUBLINGUAL Q5M PRN #25 tab 03/24/16 Meclizine [Antivert] 25 mg PO TID #20 tab 04/30/17 Allergies Allergy/AdvReac Type Severity Reaction Status Date / Time Penicillins Allergy Unknown Verified 08/06/17 17:06 Childhood Review of Systems ROS Statement: Those systems with pertinent positive or pertinent negative responses have been documented in the HPI. ROS Other: All systems not noted in ROS Statement are negative. Past Medical History Past Medical History: Atrial Fibrillation, Coronary Artery Disease (CAD), Heart Failure, GERD/Reflux, Hyperlipidemia, Hypertension, Myocardial Infarction (AL), Musculoskeletal Disorder, Osteoarthritis (OA) Additional Past Medical History / Comment(s): CAD status post CABG with ischemic cardiomyopathy,gout, IBS History of Any Multi-Drug Resistant Organisms: MRSA Date of last positivie culture/infection: 2010 MDRO Source:: knee infection Past Surgical History: Coronary Bypass/CABG, Heart Catheterization, Heart Catheterization With Stent, Pacemaker Additional Past Surgical History / Comment(s): defibrillator/pacemaker. AAA surg , cataract surg Past Anesthesia/Blood Transfusion Reactions: No Reported Reaction Type of Cardiac Device: Permanent Pacemaker Device Placement Date:: 2012 Past Psychological History: No Psychological Hx Reported Smoking Status: Former smoker Past Alcohol Use History: Rare Past Drug Use History: None Reported - Past Family History Father Family Medical History: Cancer Additional Family Medical History / Comment(s): Brain and larynx Mother Family Medical History: Cancer Additional Family Medical History / Comment(s): Lung Brother(s) Family Medical History: No Reported History General Exam General appearance: alert, in no apparent distress Head exam: Present: atraumatic, normocephalic Eye exam: Present: normal appearance, PERRL, EOMI ENT exam: Present: normal exam Neck exam: Present: normal inspection. Absent: tenderness, meningismus Respiratory exam: Present: normal lung sounds bilaterally. Absent: respiratory distress, wheezes Cardiovascular Exam: Present: regular rate, normal rhythm GI/Abdominal exam: Present: soft. Absent: distended, tenderness Extremities exam: Present: normal inspection, full ROM. Absent: tenderness Neurological exam: Present: alert, oriented X3, CN II-XII intact. Absent: motor sensory deficit Psychiatric exam: Present: normal affect, normal mood Skin exam: Present: warm, dry, intact, normal color. Absent: cyanosis, diaphoretic Medical Decision Making - Medical Decision Making 82-year-old male with acute on chronic subdural hematoma. CAT scan reviewed does show an acute on subacute right subdural hematoma. 1.4 cm hematoma with 1 cm of midline shift and subfalcine herniation. Patient clinically is well, nonfocal neurologic examination. He is alert and oriented 3. He does have elevated blood pressure 190 systolic and low heart rate in the 60s. He is started on Cardene and given seizure prophylaxis. All laboratory studies are pending, will not wait for labs, plan transfer to [facility] for neurosurgical evaluation. Case discussed with Dr. Scherer, will accept admission. Critical Care Time Critical Care Time: Yes Total Critical Care Time: 35 Disposition Clinical Impression: Traumatic subdural hematoma Disposition: OTHER INSTITUTION NOT DEFINED Condition: Serious Is patient prescribed a controlled substance at d/c from ED?: No Referrals: Ameena Ordonez MD [Primary Care Provider] - 1-2 days Time of Disposition: 17:12 - Out of Hospital Transfer - Req. Specs Out of Hospital Transfer - Requested Specifics: Other Emergency Center ( Transfer to [facility])
[2017-08-06 17:07] VITALS: RESP 18
[2017-08-06] MEDS ORDERED: levETIRAcetam IV 1,000 MG in SALINE 1 100ML.BAG IVPB STA (17:12)
[2017-08-06 17:13] LABS: Basophils % (A) 0 %; Eosinophils # (A) 0.1 k/uL (0-0.7); Eosinophils % (A) 3 %; HCT 32.5 % (39.0-53.0); HGB 10.4 gm/dL (13.0-17.5); Lymphocytes # (A) 0.5 k/uL (1.0-4.8); Lymphocytes % (A) 12 %; MCH 31.3 pg (25.0-35.0); MCHC 32.1 g/dL (31.0-37.0); MCV 97.4 fL (80.0-100.0); Macrocytosis Slight; Monocytes # (A) 0.2 k/uL (0-1.0); Monocytes % (A) 4 %; Neutrophils # (A) 3.4 k/uL (1.3-7.7); Neutrophils % (A) 79 %; Platelet Count 102 k/uL (150-450); RBC 3.34 m/uL (4.30-5.90); RDW 15.5 % (11.5-15.5); WBC 4.3 k/uL (3.8-10.6)
[2017-08-06 17:24] LABS: INR 1.1 (<1.2); Partial Thromboplastin Time 23.7 sec (22.0-30.0); Prothrombin Time 10.5 sec (9.0-12.0)
[2017-08-06 17:29] LABS: Albumin 4.1 g/dL (3.5-5.0); Calcium 9.6 mg/dL (8.4-10.2); Potassium 4.6 mmol/L (3.5-5.1); Total Bilirubin 0.6 mg/dL (0.2-1.3); Total Protein 6.2 g/dL (6.3-8.2)
[2017-08-06 17:33] VITALS: BP 192/79; PULSE 50; TEMP 97.4
[2017-08-06 17:42] LABS: Creatine Kinase MB 1.1 ng/mL (0.0-2.4); Troponin I 0.017 ng/mL (0.000-0.034)
== END 2017-08-06 17:37 | disposition other institution (70) ==
LOC: EC 16:55
DX: S06.5X9A Traumatic subdural hemorrhage with loss of consciousness of unspecified duration, initial encounter (principal); I48.91 Unspecified atrial fibrillation; I25.10 Atherosclerotic heart disease of native coronary artery without angina pectoris; I11.0 Hypertensive heart disease with heart failure; I50.9 Heart failure, unspecified; K21.9 Gastro-esophageal reflux disease without esophagitis; E78.5 Hyperlipidemia, unspecified; I25.2 Old myocardial infarction; M19.90 Unspecified osteoarthritis, unspecified site; K58.9 Irritable bowel syndrome, unspecified; Z86.14 Personal history of Methicillin resistant Staphylococcus aureus infection; Z87.891 Personal history of nicotine dependence; Z79.82 Long term (current) use of aspirin; Z79.899 Other long term (current) drug therapy; Z88.0 Allergy status to penicillin; Z95.0 Presence of cardiac pacemaker; Z95.5 Presence of coronary angioplasty implant and graft; Z95.1 Presence of aortocoronary bypass graft; W18.00XA Striking against unspecified object with subsequent fall, initial encounter
CPT/HCPCS: 36415; 86900; 86901; 80053; 82550; 82553; 84484; 85025; 85610; 85730; 86850; 99285; J1953

== ENCOUNTER → 2017-08-06 | Outpatient (CLI) | payer MEDICARE ==
--- NOTE | 2017-08-06 16:49 | CT ---
EXAMINATION TYPE: CT brain wo con DATE OF EXAM: 08/06/2017 COMPARISON: 04/30/2017 HISTORY: Patient complains of increasing headache post fall 1 week ago. Patient takes blood thinners . CT DLP: 1260 mGycm Automated exposure control for dose reduction was used. FINDINGS: There is an acute on subacute right extra-axial fluid collection/subdural hemorrhage resulting in eff acement of the sulci within the entire right supratentorial hemisphere. There is also effacement of t he right lateral ventricle and 1 cm right to left midline shift/subfalcine herniation. The left hemis phere is free of hemorrhage. No findings suspicious for transtentorial herniation. Right temporal hor n of the lateral ventricle is also diminutive. Subdural thickness measures up to 1.4 cm along the pos terior right parietal lobe on series 3 image 38. Monson-white matter interface on the left is preserved . Atherosclerosis is seen of the intracranial vasculature. No calvarial fracture is identified. Paranas al sinuses and mastoid air cells are well aerated. IMPRESSION: ACUTE ON SUBACUTE RIGHT SUBDURAL HEMORRHAGE MEASURING 1.4 CM IN GREATEST THICKNESS AND RESULTING IN E XTENSIVE MASS EFFECT INVOLVING THE ENTIRETY OF THE RIGHT SUPRATENTORIAL HEMISPHERE WITH 1.0 CM RIGHT TO LEFT MIDLINE SHIFT/SUBFALCINE HERNIATION. Findings were discussed with Dr. Ordonez at [address] Loyola. The patient was instructed to proceed directly to the ER.
== END | disposition home or self-care (01) ==
LOC: RADCTMAIN 16:11
PROVIDERS: ATTEND Internal Medicine
DX: I62.01 Nontraumatic acute subdural hemorrhage (principal); G93.89 Other specified disorders of brain
CPT/HCPCS: 70450